=== PATIENT | male | born 1975 | race Hispanic/Latino ===

== ENCOUNTER 2018-02-18 10:04 | Emergency (ER) | payer OTHER ==
--- OUTSIDE RECORDS SUMMARY | 2018-02-18 10:07 | XMS REPORT | Clinical Summary ---
:1975 Author Organization [facility] Address [address] [place] [address] Phone Care Team Providers Name Role Phone Unavailable Primary Care Provider Unavailable Allergies No Known Allergies Current Medications Prescription Sig. Disp. Refills Start Date End Date Status lisinopril Take 20 mg by Active (PRINIVIL,ZESTRIL) 20 mouth daily. MG tablet metFORMIN (GLUMETZA) Take 1,000 mg by Active 1000 MG (MOD) 24 hr mouth 2 (two) tablet times daily with breakfast and dinner. omeprazole (PRILOSEC) Take 40 mg by Active 40 MG capsule mouth daily. empagliflozin Take 10 mg by Active (JARDIANCE) 10 mg mouth daily. tablet tcffed-zsdsokth-ulfvh Take 36,000 Active se (CREON) units of lipase 36,000-114,000- by mouth 3 180,000 unit CpDR (three) times capsule daily. dicyclomine (BENTYL) Take 1 tablet 20 tablet 0 11/01/2016 11/01/2017 20 mg tablet (20 mg total) by mouth 3 (three) times daily. Active Problems Not on file Social History Tobacco Use Types Packs/Day Years Used Date Never Smoker Alcohol Use Drinks/Week oz/Week Comments No sober 4 years Sex Assigned at Date Recorded Not on file Last Filed Vital Signs Not on file Plan of Treatment Not on file Results Not on fileafter 02/17/2017
--- OUTSIDE RECORDS SUMMARY | 2018-02-18 10:07 | XMS REPORT ---
:1975 Author Organization [facility] Address [address] [place] [address] Care Team Providers Name Role Phone Unavailable Unavailable Unavailable Problems This patient has no known problems. Allergies, Adverse Reactions, Alerts This patient has no known allergies or adverse reactions. Medications This patient has no known medications. Results Test Description Test Time Test Comments Text Results Atomic Results Result Comments URINALYSIS W/ MICROSCOPIC 2016-11-01 14:50:00 Test Item Value Reference Range Comments COLOR (BEAKER) (test pzoh=951) Light Yellow CLARITY (BEAKER) (test duiw=753) Clear SPECIFIC GRAVITY UA (BEAKER) (test muii=162) 1.001 1.001-1.035 PH UA (BEAKER) (test pyis=887) 5.0 5.0-8.0 PROTEIN UA (BEAKER) (test pyvy=689) Negative Negative GLUCOSE UA (BEAKER) (test risi=041) 1000 mg/dL Negative KETONES UA (BEAKER) (test girt=156) Negative Negative BILIRUBIN UA (BEAKER) (test hznd=990) Negative Negative BLOOD UA (BEAKER) (test khwg=997) Negative Negative NITRITE UA (BEAKER) (test beby=443) Negative Negative LEUKOCYTE ESTERASE UA (BEAKER) (test nace=947) Negative Negative UROBILINOGEN UA (BEAKER) (test ozia=091) 0.2 mg/dL 0.2-1.0 RBC UA (BEAKER) (test pxus=881) 0 /HPF WBC UA (BEAKER) (test mmlo=359) 0 /HPF SOURCE(BEAKER) (test gwib=1409) Urine, Clean Catch BASIC METABOLIC [id number] 14:23:00 Test Item Value Reference Range Comments SODIUM (BEAKER) (test 137 meq/L 136-145 wtig=933) POTASSIUM (BEAKER) (test 3.9 meq/L 3.5-5.1 fdqa=736) CHLORIDE (BEAKER) (test 107 meq/L 98-107 fims=051) CO2 (BEAKER) (test 23 meq/L 22-29 oxdn=069) BLOOD UREA NITROGEN 10 mg/dL 7-21 (BEAKER) (test dets=186) CREATININE (BEAKER) (test 0.85 mg/dL 0.57-1.25 pjsu=918) GLUCOSE RANDOM (BEAKER) 85 mg/dL 70-105 (test qgav=128) CALCIUM (BEAKER) (test 9.0 mg/dL 8.4-10.2 lyrv=975) EGFR (BEAKER) (test mL/min/1.73 sq m INSUFFICIENT CLINICAL DATA vkwo=9923) TO CALCULATE ESTIMATED GFR. [id number] 14:20:00 Test Item Value Reference Range Comments LIPASE (BEAKER) (test tscj=948) 71 U/L 8-78 [id number] 14:20:00 Test Item Value Reference Range Comments AMYLASE (BEAKER) (test otgu=100) 75 U/L 25-125 HEPATIC FUNCTION [id number] 14:20:00 Test Item Value Reference Range Comments TOTAL PROTEIN (BEAKER) (test fdiu=834) 7.4 gm/dL 6.0-8.3 ALBUMIN (BEAKER) (test apnw=4561) 4.2 g/dL 3.5-5.0 BILIRUBIN TOTAL (BEAKER) (test doku=550) 1.7 mg/dL 0.2-1.2 BILIRUBIN DIRECT (BEAKER) (test uehm=430) 0.5 mg/dL 0.1-0.5 ALKALINE PHOSPHATASE (BEAKER) (test bqpq=093) 54 U/L 40-150 AST (SGOT) (BEAKER) (test lirv=581) 31 U/L 5-34 ALT (SGPT) (BEAKER) (test fqfa=627) 42 U/L 6-55 CBC W/PLT COUNT & AUTO [id number] 14:06:00 Test Item Value Reference Range Comments WHITE BLOOD CELL COUNT (BEAKER) (test xssl=221) 6.7 K/ L 4.0-10.0 RED BLOOD CELL COUNT (BEAKER) (test aanw=671) 5.15 M/ L 4.20-5.80 HEMOGLOBIN (BEAKER) (test yblw=092) 16.1 GM/DL 13.0-16.8 HEMATOCRIT (BEAKER) (test ytue=567) 45.5 % 40.0-50.0 MEAN CORPUSCULAR VOLUME (BEAKER) (test ldqb=211) 88.4 fL 82.0-98.0 MEAN CORPUSCULAR HEMOGLOBIN (BEAKER) (test 31.3 pg 27.0-33.0 aicr=851) MEAN CORPUSCULAR HEMOGLOBIN CONC (BEAKER) (test 35.5 GM/DL 32.0-36.0 lxio=718) RED CELL DISTRIBUTION WIDTH (BEAKER) (test 13.0 % 10.3-14.2 lthk=882) PLATELET COUNT (BEAKER) (test xwoc=836) 197 K/CU MM 150-430 MEAN PLATELET VOLUME (BEAKER) (test crjd=709) 7.5 fL 6.5-10.5 NUCLEATED RED BLOOD CELLS (BEAKER) (test 0 /100 WBC 0-0 kzxw=680) NEUTROPHILS RELATIVE PERCENT (BEAKER) (test 59 % xnom=380) LYMPHOCYTES RELATIVE PERCENT (BEAKER) (test 34 % zncu=706) MONOCYTES RELATIVE PERCENT (BEAKER) (test 5 % cecy=525) EOSINOPHILS RELATIVE PERCENT (BEAKER) (test 1 % fpdu=956) BASOPHILS RELATIVE PERCENT (BEAKER) (test 1 % ohau=116) NEUTROPHILS ABSOLUTE COUNT (BEAKER) (test 3.98 K/ L 1.80-8.00 afga=292) LYMPHOCYTES ABSOLUTE COUNT (BEAKER) (test 2.26 K/ L 1.48-4.50 ezva=439) MONOCYTES ABSOLUTE COUNT (BEAKER) (test 0.33 K/ L 0.00-1.30 enwm=940) EOSINOPHILS ABSOLUTE COUNT (BEAKER) (test 0.09 K/ L 0.00-0.50 zmrn=904) BASOPHILS ABSOLUTE COUNT (BEAKER) (test 0.07 K/ L 0.00-0.20 nejb=735) 0.00
--- NOTE | 2018-02-18 11:38 | RAD REPORT ---
EXAM DESCRIPTION: RAD - Chest Pa And Lat (2 Views) - 02/18/2018 11:33 am CLINICAL HISTORY: COUGH Chest pain. COMPARISON: No comparisons FINDINGS: The lungs are clear. The heart is normal in size. No displaced fractures. IMPRESSION: No acute or concerning finding suspected.
[2018-02-18 12:24] LABS: Absolute Lymphocytes (CBC) 1.9 K/uL (0.7-4.9); Absolute Monocytes 0.4 K/uL (0.1-1.3); Basophils % 0.8 % (0-1.3); Eosinophils % 2.8 % (0-4.4); Hematocrit 43.8 % (39.6-49.0); Lymphocytes % 28.6 % (15.3-44.8); MCH 31.5 pg (27.0-35.0); MCV 86.7 fL (80-100); MPV 8.6 fL (7.6-11.3); Monocytes % 5.8 % (3.3-12.3); RBC Red Blood Cell Count 5.05 M/uL (4.33-5.43)
[2018-02-18] MEDS ORDERED: NA CHLORIDE 0.9% 1,000 ML ONE (12:28)
[2018-02-18 12:46] LABS: ALT/SGPT 107 U/L (12-78); AST/SGOT 69 U/L (15-37); Albumin 3.9 g/dL (3.4-5.0); Alkaline Phosphatase 109 U/L (45-117); BUN Blood Urea Nitrogen 6 mg/dL (7-18); Bicarbonate 29 mmol/L (21-32); Bilirubin Direct 0.3 mg/dL (0-0.2); Bilirubin Total 1.5 mg/dL (0.2-1.0); Glucose Level 237 mg/dL (74-106); Lipase 253 U/L (73-393); Potassium 3.7 mmol/L (3.5-5.1); Sodium Level 139 mmol/L (136-145)
[2018-02-18 12:57] LABS: Urine Bacteria NONE SEEN /HPF (NONE SEEN); Urine Culture Reflex Order NOT NEEDED; Urine RBC <5 /HPF (NONE SEEN)
[2018-02-18] MEDS ORDERED: KETOROLAC 30 MG/ML INJ ONE (14:07)
[2018-02-18 14:21] LABS: Urine Blood NEGATIVE (NEG); Urine Glucose 2+ (NEG); Urine Protein NEGATIVE (NEG); Urine pH 6.5 (5.0-7.0)
--- NOTE | 2018-02-18 14:26 | RAD REPORT ---
EXAM DESCRIPTION: CT - Stone Protocol - 02/18/2018 2:12 pm CLINICAL HISTORY: Abdominal pain, flank pain COMPARISON: CT September 2016 TECHNIQUE: Axial 5 mm thick images were obtained without oral or IV contrast. The gnydz-mr-kixb span s the entirety of the system including uppermost abdomen and lung bases. All CT scans are performed using dose optimization technique as appropriate and may include automated exposure control or mA/KV adjustment according to patient size. FINDINGS: No hydronephrosis is present and no obstructing ureteral calculi. No suspicious renal mass es. Isodense masses and pyelonephritis are not excluded on a stone protocol CT scan. No urinary bladd er suspicious finding. Prostate gland and seminal vesicles are normal range. Imaged portions of the liver, spleen and pancreas show no focal findings on non-contrast imaging. Naty er attenuation shows fatty infiltration relative to the spleen. Gallbladder is absent. Biliary tree w ithin normal limits. No significant adrenal finding. No suspicious bowel findings. Appendix is normal. No active GI process identifiable. Phleboliths are seen along the pelvic floor. No hernia, mass or bulky lymphadenopathy noted. No free air, free fluid or inflammatory stranding. No significant bony abnormality. IMPRESSION: No hydronephrosis, obstructing calculus or acute finding. Isodense masses and pyelonephritis are not excluded on stone protocol technique. Fatty infiltration of the liver. Gallbladder is surgically absent.
--- NOTE | 2018-02-18 14:52 | EDPHYS ---
Physician Documentation [facility] Name: Maykel Levin Jr Age: 42 yrs Sex: Male : 1975 Arrival Date: 02/18/2018 Time: 10:08 Bed 24 Private MD: Shakir Ribeiro ED Physician Alli Iniguez HPI: 02/18 13:00 This 42 yrs old Male presents to ER via Ambulatory with complaints of High pm1 Blood Sugar. 13:00 The patient or guardian reports hyperglycemia, that was potentially precipitated by pm1 running out of medication, metformin this AM. Onset: The symptoms/episode began/occurred this morning. Associated signs and symptoms: Pertinent negatives: polydipsia, polyphagia, polyuria. Current symptoms: In the emergency department the patient's symptoms have improved. The patient has not experienced similar symptoms in the past. The patient has not recently seen a physician. Patient with blood sugars in the range of 400 at work. Blood sugars have improved prior to arriving to the ER. Patient missed his dosage of metformin 1000 mg this AM because he ran out.. Historical: - Allergies: 10:42 No Known Allergies; ph - Home Meds: 10:42 Metformin Oral [Active]; losartan oral oral [Active]; ph - PMHx: 10:37 Hypertension; ph 10:42 Diabetes - NIDDM; Pancreatitis; ph - PSHx: 10:37 Cholecystectomy; ph - Immunization history:: Adult Immunizations up to date. - Social history:: Smoking status: Patient/guardian denies using tobacco. - Ebola Screening: : Patient denies travel to an Ebola-affected area in the 21 days before illness onset. ROS: 13:00 Constitutional: Negative for fever, chills, and weight loss, Eyes: Negative for injury, pm1 pain, redness, and discharge, ENT: Negative for injury, pain, and discharge, Neck: Negative for injury, pain, and swelling, Cardiovascular: Negative for chest pain, palpitations, and edema, Respiratory: Negative for shortness of breath, cough, wheezing, and pleuritic chest pain, Abdomen/GI: Negative for abdominal pain, nausea, vomiting, diarrhea, and constipation, Back: Negative for injury and pain, : Negative for injury, bleeding, discharge, and swelling, MS/Extremity: Negative for injury and deformity, Skin: Negative for injury, rash, and discoloration, Neuro: Negative for headache, weakness, numbness, tingling, and seizure. Exam: 13:00 Constitutional: This is a well developed, well nourished patient who is awake, alert, pm1 and in no acute distress. Head/Face: Normocephalic, atraumatic. Eyes: Pupils equal round and reactive to light, extra-ocular motions intact. Lids and lashes normal. Conjunctiva and sclera are non-icteric and not injected. Cornea within normal limits. Periorbital areas with no swelling, redness, or edema. ENT: Nares patent. No nasal discharge, no septal abnormalities noted. Tympanic membranes are normal and external auditory canals are clear. Oropharynx with no redness, swelling, or masses, exudates, or evidence of obstruction, uvula midline. Mucous membranes moist. Neck: Trachea midline, no thyromegaly or masses palpated, and no cervical lymphadenopathy. Supple, full range of motion without nuchal rigidity, or vertebral point tenderness. No Meningismus. Chest/axilla: Normal chest wall appearance and motion. Nontender with no deformity. No lesions are appreciated. Cardiovascular: Regular rate and rhythm with a normal S1 and S2. No gallops, murmurs, or rubs. Normal PMI, no JVD. No pulse deficits. Respiratory: Lungs have equal breath sounds bilaterally, clear to auscultation and percussion. No rales, rhonchi or wheezes noted. No increased work of breathing, no retractions or nasal flaring. Abdomen/GI: Soft, non-tender, with normal bowel sounds. No distension or tympany. No guarding or rebound. No evidence of tenderness throughout. Back: No spinal tenderness. No costovertebral tenderness. Full range of motion. Skin: Warm, dry with normal turgor. Normal color with no rashes, no lesions, and no evidence of cellulitis. MS/ Extremity: Pulses equal, no cyanosis. Neurovascular intact. Full, normal range of motion. 13:00 Neuro: Orientation: is normal, Motor: moves all fours. Vital Signs: 10:41 BP 145 / 100; Pulse 66; Resp 18; Temp 97.9; Pulse Ox 98% on R/A; Weight 92.99 kg; ph Height 5 ft. 7 in. (170.18 cm); 13:37 BP 133 / 89; Pulse 59; Resp 18; Pulse Ox 97% on R/A; aj1 15:30 BP 127 / 82; Pulse 62; Resp 18; Pulse Ox 99% on R/A; aj1 10:41 Body Mass Index 32.11 (92.99 kg, 170.18 cm) ph MDM: 11:08 Patient medically screened. pm1 11:13 Patient medically screened. vera 12:51 Data reviewed: vital signs. Data interpreted: Pulse oximetry: on room air is 98 %. pm1 Interpretation: normal. 13:57 ED course: Patient reports onset of right flank pain during ER stay, requesting pain pm1 medications. Will order pain medications and CT stone protocol to evaluate flank pain. 14:50 Counseling: I had a detailed discussion with the patient and/or guardian regarding: the pm1 historical points, exam findings, and any diagnostic results supporting the discharge/admit diagnosis, lab results, radiology results, the need for outpatient follow up, to return to the emergency department if symptoms worsen or persist or if there are any questions or concerns that arise at home. 02/18 11:16 Order name: Basic Metabolic Panel; Complete Time: 12:48 pm1 02/18 11:16 Order name: CBC with Diff; Complete Time: 12:45 pm1 02/18 11:16 Order name: Hepatic Function; Complete Time: 12:48 pm1 02/18 11:16 Order name: Lipase; Complete Time: 12:48 pm1 02/18 11:16 Order name: Urine Microscopic Only; Complete Time: 13:52 pm1 02/18 12:05 Order name: Urine Dipstick--Ancillary (enter results); Complete Time: 14:50 eb 02/18 11:16 Order name: IV Saline Lock; Complete Time: 11:56 pm02/18 11:16 Order name: Labs collected and sent; Complete Time: 11:56 pm1 02/18 11:16 Order name: Urine Dipstick-Ancillary (obtain specimen); Complete Time: 11:57 pm02/18 11:16 Order name: Chest Pa And Lat (2 Views) XRAY; Complete Time: 11:40 pm1 02/18 13:57 Order name: CT Stone Protocol; Complete Time: 14:50 pm1 Administered Medications: 12:32 Drug: NS 0.9% 1000 ml Route: IV; Rate: 1000 ml; Site: left antecubital; aj1 14:22 Drug: TORadol 30 mg Route: IVP; Site: left antecubital; aj1 Disposition: 02/19 07:20 Co-signature as Attending Physician, Alli Iniguez MD I agree with the assessment and vera plan of care. Chart complete. Disposition: 02/18/18 14:51 Discharged to Home. Impression: Hyperglycemia, unspecified, Low back pain. - Condition is Stable. - Discharge Instructions: Back Pain, Adult, Hyperglycemia, Blood Glucose Monitoring, Adult. - Prescriptions for Metformin 1,000 mg Oral Tablet - take 1 tablet by ORAL route every 12 hours with morning and evening meals; 20 tablet. - Medication Reconciliation Form, Thank You Letter form. - Follow up: Private Physician; When: 2 - 3 days; Reason: Recheck today's complaints, Continuance of care, Re-evaluation by your physician. Follow up: Emergency Department; When: As needed; Reason: Worsening of condition. - Problem is new. - Symptoms have improved. Signatures: Dispatcher [employer] EDSerena Knott RN RN aj1 Alli Iniguez MD MD cha Hall, Patricia, RN RN ph Marinas, Patrick, FISH CLEANER FISH CLEANER pm1 Corrections: (The following items were deleted from the chart) 02/18 15:31 14:51 02/18/2018 14:51 Discharged to Home. Impression: Hyperglycemia, unspecified; Low aj1 back pain. Condition is Stable. Discharge Instructions: Hyperglycemia, Blood Glucose Monitoring, Adult. Prescriptions for Metformin 500 mg Oral Tablet - take 1 tablet by ORAL route once daily for 7 days Then take 1 tablet with morning meals AND evening meals; 21 tablet. and Forms are Medication Reconciliation Form, Thank You Letter, Antibiotic Education, Prescription Opioid Use. Follow up: Private Physician; When: 2 - 3 days; Reason: Recheck today's complaints, Continuance of care, Re-evaluation by your physician. Follow up: Emergency Department; When: As needed; Reason: Worsening of condition. Problem is new. Symptoms have improved. pm1
--- NOTE | 2018-02-18 14:52 | ER ---
Nurse's Notes [facility] Name: Maykel Levin Jr Age: 42 yrs Sex: Male : 1975 Arrival Date: 02/18/2018 Time: 10:08 Bed 24 Private MD: Shakir Ribeiro Diagnosis: Hyperglycemia, unspecified;Low back pain Presentation: 02/18 10:39 Presenting complaint: Patient states: " My sugar has been running high today. When I ph checked it at work it was in the 400s then right before I cam up here it was 310." Pt denies recent infection, N/V/D or illness, BGL 243 in triage, pt reports increased urination and thirst, headache, fatigue and confusion states, " IT's like I'm in a fog.". Transition of care: patient was not received from another setting of care. Onset of symptoms was February 18, 2018. Risk Assessment: Do you want to hurt yourself or someone else? Patient reports no desire to harm self or others. Initial Sepsis Screen: Does the patient meet any 2 criteria? No. Patient's initial sepsis screen is negative. Does the patient have a suspected source of infection? No. Patient's initial sepsis screen is negative. Care prior to arrival: None. 10:39 Method Of Arrival: Ambulatory ph 10:39 Acuity: ANT 3 ph Historical: - Allergies: 10:42 No Known Allergies; ph - Home Meds: 10:42 Metformin Oral [Active]; losartan oral oral [Active]; ph - PMHx: 10:37 Hypertension; ph 10:42 Diabetes - NIDDM; Pancreatitis; ph - PSHx: 10:37 Cholecystectomy; ph - Immunization history:: Adult Immunizations up to date. - Social history:: Smoking status: Patient/guardian denies using tobacco. - Ebola Screening: : Patient denies travel to an Ebola-affected area in the 21 days before illness onset. Screenin:10 Abuse screen: Denies threats or abuse. Denies injuries from another. Nutritional aj1 screening: No deficits noted. Tuberculosis screening: No symptoms or risk factors identified. 15:30 Fall Risk None identified. aj1 Assessment: 11:10 General: Appears in no apparent distress. uncomfortable, Behavior is calm, cooperative, aj1 appropriate for age. Pain: Complains of pain in right mid back Pain does not radiate. Pain currently is 3 out of 10 on a pain scale. Quality of pain is described as aching. Neuro: Level of Consciousness is awake, alert, obeys commands, Oriented to person, place, time, situation, Moves all extremities. Full function Gait is steady, Speech is normal, Facial symmetry appears normal, Reports dizziness. Cardiovascular: Patient's skin is warm and dry. Respiratory: Airway is patent Respiratory effort is even, unlabored, Respiratory pattern is regular, symmetrical. GI: No signs and/or symptoms were reported involving the gastrointestinal system. : No signs and/or symptoms were reported regarding the genitourinary system. EENT: No signs and/or symptoms were reported regarding the EENT system. Derm: No signs and/or symptoms reported regarding the dermatologic system. Skin is pink, warm \\T\\ dry. normal. Musculoskeletal: No signs and/or symptoms reported regarding the musculoskeletal system. Circulation, motion, and sensation intact. 12:39 Reassessment: Patient appears in no apparent distress at this time. No changes from aj1 previously documented assessment. Patient and/or family updated on plan of care and expected duration. Pain level reassessed. Patient is alert, oriented x 3, equal unlabored respirations, skin warm/dry/pink. 13:37 Reassessment: Patient appears in no apparent distress at this time. No changes from aj1 previously documented assessment. Patient and/or family updated on plan of care and expected duration. Pain level reassessed. Patient is alert, oriented x 3, equal unlabored respirations, skin warm/dry/pink. 14:30 Reassessment: Patient appears in no apparent distress at this time. No changes from aj1 previously documented assessment. Patient and/or family updated on plan of care and expected duration. Pain level reassessed. Patient is alert, oriented x 3, equal unlabored respirations, skin warm/dry/pink. 15:29 Reassessment: Patient appears in no apparent distress at this time. No changes from aj1 previously documented assessment. Patient and/or family updated on plan of care and expected duration. Pain level reassessed. Patient is alert, oriented x 3, equal unlabored respirations, skin warm/dry/pink. Vital Signs: 10:41 BP 145 / 100; Pulse 66; Resp 18; Temp 97.9; Pulse Ox 98% on R/A; Weight 92.99 kg; ph Height 5 ft. 7 in. (170.18 cm); 13:37 BP 133 / 89; Pulse 59; Resp 18; Pulse Ox 97% on R/A; aj1 15:30 BP 127 / 82; Pulse 62; Resp 18; Pulse Ox 99% on R/A; aj1 10:41 Body Mass Index 32.11 (92.99 kg, 170.18 cm) ph ED Course: 10:08 Patient arrived in ED. sb2 10:08 Shakir Ribeiro MD is Private Physician. sb2 10:41 Triage completed. ph 10:42 Arm band placed on Patient placed in waiting room, Patient notified of wait time. ph 11:07 Marcio Weber, KAREN is PHCP. pm1 11:08 Alli Iniguez MD is Attending Physician. pm1 11:10 Serena Wills RN is Primary Nurse. aj1 11:10 Patient has correct armband on for positive identification. Bed in low position. Call aj1 light in reach. Side rails up X 1. 11:10 No provider procedures requiring assistance completed. aj1 11:31 X-ray completed. Portable x-ray completed in exam room. Patient tolerated procedure jb2 well. 11:32 Chest Pa And Lat (2 Views) XRAY In Process Unspecified. EDMS 11:45 Initial lab(s) drawn, by me, sent to lab. Urine collected: clean catch specimen, clear, jp3 manuel colored. Inserted saline lock: 20 gauge in right antecubital area, using aseptic technique. Blood collected. 11:54 Pillow given. Pulse ox on. NIBP on. jp3 11:56 Basic Metabolic Panel Sent. jp3 11:56 CBC with Diff Sent. jp3 11:56 Lipase Sent. jp3 11:56 Hepatic Function Sent. jp3 11:57 Urine Microscopic Only Sent. jp3 14:11 CT completed. Patient tolerated procedure well. Patient moved to CT via wheelchair. sj Patient moved back from CT. 14:12 CT Stone Protocol In Process Unspecified. EDMS 15:29 IV discontinued, intact, bleeding controlled, No redness/swelling at site. Pressure aj1 dressing applied. Administered Medications: 12:32 Drug: NS 0.9% 1000 ml Route: IV; Rate: 1000 ml; Site: left antecubital; aj1 14:22 Drug: TORadol 30 mg Route: IVP; Site: left antecubital; aj1 Outcome: 14:51 Discharge ordered by MD. pm1 15:30 Discharged to home ambulatory. aj1 15:30 Condition: good 15:30 Discharge instructions given to patient, Instructed on discharge instructions, follow up and referral plans. medication usage, Demonstrated understanding of instructions, follow-up care, medications, Prescriptions given X 1. 15:31 Patient left the ED. aj1 Signatures: Dispatcher [employer] Serena Prather RN RN aj1 Patricio Melgar jbGilma Means Patricia, RN RN Marcio Ch, SPECIAL EDUCATION TUTOR SPECIAL EDUCATION TUTOR pm1 Esthela Harris sb2 Thompson Angel jp3
== END 2018-02-18 15:31 | disposition home or self-care (01) ==
LOC: ER 10:04
DX: E11.65 Type 2 diabetes mellitus with hyperglycemia (principal); M54.5 Low back pain; I10 Essential (primary) hypertension
CPT/HCPCS: 36415; 71046; 74176; 76377; 80048; 80076; 81003; 81015; 82962; 83690; 85025; 96374; 99284; J7030

== ENCOUNTER 2018-03-21 10:01 | Emergency (ER) | payer OTHER ==
--- OUTSIDE RECORDS SUMMARY | 2018-03-21 10:04 | XMS REPORT | Clinical Summary ---
:1975 Author Organization [facility] Address [address] [place] [address] Phone Care Team Providers Name Role Phone Unavailable Primary Care Provider Unavailable Allergies No Known Allergies Current Medications Prescription Sig. Disp. Refills Start Date End Date Status metFORMIN Take 1,000 mg Active (GLUMETZA) 1000 MG by mouth 2 (MOD) 24 hr tablet (two) times daily with breakfast and dinner. losartan (COZAAR) Take 25 mg by Active 25 MG tablet mouth daily. gabapentin Take 300 mg by Active (NEURONTIN) 300 MG mouth 2 (two) capsule times daily. rosuvastatin Take 5 mg by Active (CRESTOR) 5 MG mouth daily. tablet venlafaxine Take 37.5 mg by Active (EFFEXOR) 37.5 MG mouth nightly. tablet multivitamin per Take 1 tablet Active tablet by mouth daily. ascorbic acid, Take 500 mg by Active vitamin C, mouth daily. (ASCORBIC ACID WITH JORGE HIPS) 500 MG tablet naproxen sodium Take by mouth Active (ALEVE ORAL) as needed. lisinopril Take 20 mg by Discontinued (PRINIVIL,ZESTRIL) mouth daily. 8 20 MG tablet omeprazole Take 40 mg by Discontinued (PRILOSEC) 40 MG mouth daily. 8 capsule empagliflozin Take 10 mg by Discontinued (JARDIANCE) 10 mg mouth daily. 8 tablet ngiexl-dugwbujc-dbl Take 36,000 Discontinued lase (CREON) units of lipase 8 36,000-114,000- by mouth 3 180,000 unit CpDR (three) times capsule daily. dicyclomine Take 1 tablet 20 tablet 0 11/01/2016 (BENTYL) 20 mg (20 mg total) 8 tablet by mouth 3 (three) times daily. Active Problems Problem Noted Date Fatty liver 03/17/2018 Last Assessment & Plan: Patient has several risk factors for NAFLD including obesity, Type 2 DM, HTN, HLD diagnostic of metabolic syndrome. He will need aggressive life style modification and treatment of risk factors. We counseled patient to follow low carbohydrate diet, exercise regularly, and lose weight. Education material provided to patient today. NAFLD is a risk factor to develop cirrhosis which carries high risk for complications and mortality. Cirrhosis 03/17/2018 Last Assessment & Plan: Cirrhosis diagnosed based on US elastography showing F4 fibrosis. There are no signs or symptoms currently for decompensation. Labs from 10/2016 show well preserved liver synthetic function. Etiology is most likely NAFLD. He has multiple risk factors as discussed below. We will do liver biopsy, MRI abdomen and check comprehensive liver tests to rule out any other cause of cirrhosis. Cirrhosis has high risk for complications and carries high risk for mortality. We will calculate MELD Na based on labs today. Cirrhosis guidelines reviewed with patient. Immunity status testing 03/17/2018 Last Assessment & Plan: All patients with chronic liver disease, regardless of etiology, should be immunized to prevent hepatitis A and hepatitis B if they are not already immune. We will test for immunity to both viruses and vaccine recommendations will follow. Cancer screening 03/17/2018 Last Assessment & Plan: Cirrhosis, regardless of etiology, is a risk factor for development of hepatocellular carcinoma (HCC). The annual incidence of HCC varies from 1.5-7%. Thus, we recommend surveillance of HCC every 6 anahi hs with MRI and AFP. We will do MRI and AFP today. Indirect hyperbilirubinemia 03/17/2018 Encounters Date Type Specialty Care Team Description 03/21/2018 Telephone Transplant [facility] 03/17/2018 Office Visit Hepatology Sylvester Low MD Other cirrhosis of liver (HCC) (Primary Dx);Immunity status testing;Screening for malignant neoplasm;Fatty liver;Cirrhosis;Cancer screening;Liver disease;Portal hypertension (HCC);Indirect hyperbilirubinemia after 03/20/2017 Family History Medical History Relation Name Comments Prostatitis Father Diabetes Mother Heart disease Mother Relation Name Status Comments Father Alive Mother Alive Social History Tobacco Use Types Packs/Day Years Used Date Never Smoker Smokeless Tobacco: Never Used Alcohol Use Drinks/Week oz/Week Comments No sober 4 years Sex Assigned at Date Recorded Not on file Last Filed Vital Signs Vital Sign Reading Time Taken Blood Pressure 157/83 03/17/2018 10:39 AM CDT Pulse 92 03/17/2018 10:39 AM CDT Temperature 36.8 C (98.3 F) 03/17/2018 10:39 AM CDT Respiratory Rate 18 03/17/2018 10:39 AM CDT Oxygen Saturation 98% 03/17/2018 10:39 AM CDT Inhaled Oxygen Concentration - - Weight 93.2 kg (205 lb 6.4 oz) 03/17/2018 10:39 AM CDT Height 170.2 cm (5' 7") 03/17/2018 10:39 AM CDT Body Mass Index 32.17 03/17/2018 10:39 AM CDT Plan of Treatment Date Type Specialty Care Team Description 03/26/2018 Appointment Radiology Syvlester Low MD [address] [place] [address] [phone] 03/28/2018 Appointment Radiology Sylvester Low MD [address] [place] [address] [phone] 04/22/2018 Office Visit Hepatology Sylvester Low MD [address] [place] [address] [phone] Results Iron, TIBC, % sat. (without ferritin) (03/17/2018 1:42 PM) Component Value Ref Range Iron 124 50 - 180 mcg/dL Iron Bind.Cap.(TIBC) 379 250 - 425 mcg/dL (calc) Iron % Saturation 33 15 - 60 % (calc) Specimen Performing Laboratory [facility] [address] [place] [phone] Narrative FASTING:YES FASTING: YES Hepatitis C antibody (03/17/2018 1:42 PM) Component Value Ref Range HEPATITIS C ANTIBODY NON-REACTIVE NON-REACTIVE Signal/Cutoff 0.04 <1.00 Specimen Performing Laboratory [facility] [address] [place] [address] Narrative FASTING:YES FASTING: YES Actin (Smooth Muscle) Antibody, IgG (03/17/2018 1:42 PM) Component Value Ref Range Anti-Smooth Muscle Ab <20 U Comment: Reference Range: < 20 NEGATIVE > OR=20 POSITIVE Antibodies recognizing actin are the main component of smooth muscle antibodies associated with autoimmune liver disease. Actin antibodies are found in approximately 75% of patients with autoimmune hepatitis (AIH) type 1, approximately 65% of patients with autoimmune cholangitis, approximately 30% of patients with primary biliary cirrhosis, and approximately 2% of healthy people. High values are closely correlated with AIH type 1. Specimen Performing Laboratory [facility] [address] [place] [address], [place] [address] Narrative FASTING:YES FASTING: YES Intrs-[id number] (03/17/2018 1:42 PM) Component Value Ref Range A-1 Antitrypsin 139 83 - 199 mg/dL Specimen Performing Laboratory [facility] [address] [place] [address], [place] [address] Narrative FASTING:YES FASTING: YES Carbohydrate antigen 19-9 (CA 19-9) (03/17/2018 1:42 PM) Component Value Ref Range Carbo. Antigen 19-9 9 <34 U/mL Comment: This test was performed using the Moodyo chemiluminescent method. Values obtained from different assay methods cannot be used interchangeably. CA 19-9 levels, regardless of value, should not be interpreted as absolute evidence of the presence or absence of disease. Specimen Performing Laboratory [facility] [address] [place] [address], [place] [address] Narrative FASTING:YES FASTING: YES Ceruloplasmin (03/17/2018 1:42 PM) Component Value Ref Range Ceruloplasmin 26 18 - 36 mg/dL Specimen Performing Laboratory [facility] [address] [place] [address], [place] [address] Narrative FASTING:YES FASTING: YES Alpha fetoprotein (AFP), tumor marker (03/17/2018 1:42 PM) Component Value Ref Range Alpha-Fetoprotein 5.3 <6.1 ng/mL Comment: This test was performed using the Applika chemiluminescent method. Values obtained from different assay methods cannot be used interchangeably. AFP levels, regardless of value, should not be interpreted as absolute evidence of the presence or absence of disease. Specimen Performing Laboratory [facility] [address] [place] [address], [place] [address] Narrative FASTING:YES FASTING: YES Hepatitis B core antibody, total (03/17/2018 1:42 PM) Component Value Ref Range Hep B Core Total Ab NON-REACTIVE NON-REACTIVE Specimen Performing Laboratory [facility] [address] [place] [address], [place] [address] Narrative FASTING:YES FASTING: YES Hepatitis B surface antibody (03/17/2018 1:42 PM) Component Value Ref Range Hep B S Ab <5 (L) > OR=10 mIU/mL Comment: Patient does not have immunity to hepatitis B virus. For additional information, please refer to http://education.LogicBay/faq/IXT010 (This link is being provided for informational/ educational purposes only). Specimen Performing Laboratory [facility] [address] [facility] [place] [address] Narrative FASTING:YES FASTING: YES Hepatitis B surface antigen (03/17/2018 1:42 PM) Component Value Ref Range Hepatitis B Surface Ag NON-REACTIVE NON-REACTIVE Specimen Performing Laboratory [facility] [address] [place] [address], [place] [address] Narrative FASTING:YES FASTING: YES Prothrombin time/INR (03/17/2018 1:42 PM) Component Value Ref Range INR 1.1 Comment: Reference Range 0.9-1.1 Moderate-intensity Warfarin Therapy 2.0-3.0 Higher-intensity Warfarin Therapy 3.0-4.0 PT 11.2 9.0 - 11.5 sec Comment: For more information on this test, go to: http://education.LogicBay/faq/CHV226 Specimen Performing Laboratory [facility] [address] [place] [address], [place] [address] Narrative FASTING:YES FASTING: YES CBC with platelet count + automated diff (03/17/2018 1:42 PM) Component Value Ref Range WBC 7.2 3.8 - 10.8 Thousand/uL RBC 5.23 4.20 - 5.80 Million/uL Hemoglobin 16.3 13.2 - 17.1 g/dL Hematocrit 46.4 38.5 - 50.0 % MCV 88.7 80.0 - 100.0 fL MCH 31.2 27.0 - 33.0 pg MCHC 35.1 32.0 - 36.0 g/dL RDW 12.8 11.0 - 15.0 % Platelets 241 140 - 400 Thousand/uL MPV 10.8 7.5 - 12.5 fL # Neutros 4162 1500 - 7800 cells/uL # Lymphs 2513 850 - 3900 cells/uL # Monos 360 200 - 950 cells/uL # Eos 122 15 - 500 cells/uL # Baso 43 0 - 200 cells/uL % Neutros 57.8 % % Lymphs 34.9 % % Monos 5.0 % % Eos 1.7 % % Baso 0.6 % Specimen Performing Laboratory [facility] [address] [place] [phone] Narrative FASTING:YES FASTING: YES Anti-Nuclear Antibody (BOBY) (03/17/2018 1:42 PM) Component Value Ref Range BOBY Screen NEGATIVE NEGATIVE Comment: BOBY IFA is a first line screen for detecting the presence of up to approximately 150 autoantibodies in various autoimmune diseases. A negative BOBY IFA result suggests BOBY-associated autoimmune diseases are not present at this time. Visit Physician FAQs for interpretation of all antibodies in the Leslie, prevalence, and association with diseases at http://BigML.NOWBOX/ faq/FGY968 Specimen Performing Laboratory [facility] [address] [place] [phone] Narrative FASTING:YES FASTING: YES Ferritin (03/17/2018 1:42 PM) Component Value Ref Range Ferritin, Serum 339 20 - 380 ng/mL Specimen Performing Laboratory [facility] [address] [place] [phone] Narrative FASTING:YES FASTING: YES Carcinoembryonic Antigen (CEA) (03/17/2018 1:42 PM) Component Value Ref Range CEA 1.1 See Note: ng/mL Comment: Reference Range: Non-Smoker: <2.5 Smoker: <5.0 This test was performed using the Siemens chemiluminescent method. Values obtained from different assay methods cannot be used interchangeably. CEA levels, regardless of value, should not be interpreted as absolute evidence of the presence or absence of disease. Specimen Performing Laboratory [facility] [address] [place] [phone] Narrative FASTING:YES FASTING: YES Comprehensive metabolic panel (03/17/2018 1:42 PM) Component Value Ref Range Glucose 107 (H) 65 - 99 mg/dL Comment: Fasting reference interval For someone without known diabetes, a glucose value between 100 and 125 mg/dL is consistent with prediabetes and should be confirmed with a follow-up test. BUN 10 7 - 25 mg/dL Creatinine 0.73 0.60 - 1.35 mg/dL eGFR If NonAfricn Am 114 > OR=60 mL/min/1.73m2 eGFR If Africn Am 132 > OR=60 mL/min/1.73m2 BUN/Creatinine Ratio NOT APPLICABLE 6 - 22 (calc) Sodium 142 135 - 146 mmol/L Potassium, Serum 3.9 3.5 - 5.3 mmol/L Chloride 104 98 - 110 mmol/L Carbon Dioxide, Total 29 20 - 32 mmol/L Calcium, Serum 9.3 8.6 - 10.3 mg/dL Protein, Total, Serum 7.7 6.1 - 8.1 g/dL Albumin 4.9 3.6 - 5.1 g/dL GLOBULIN ([facility]) 2.8 1.9 - 3.7 g/dL (calc) Albumin Globulin Ratio 1.8 1.0 - 2.5 (calc) Bilirubin, Total 2.0 (H) 0.2 - 1.2 mg/dL Alkaline Phosphatase, S 70 40 - 115 U/L AST (SGOT) 43 (H) 10 - 40 U/L ALT (SGPT) 67 (H) 9 - 46 U/L Specimen Performing Laboratory [facility] [address] [facility] [place] [address] Narrative FASTING:YES FASTING: YES after 03/20/2017
--- OUTSIDE RECORDS SUMMARY | 2018-03-21 10:04 | XMS REPORT ---
:1975 Author Organization [facility] Address [address] [place] [address] Care Team Providers Name Role Phone Unavailable Unavailable Unavailable Problems This patient has no known problems. Allergies, Adverse Reactions, Alerts This patient has no known allergies or adverse reactions. Medications This patient has no known medications. Results Test Description Test Time Test Comments Text Results Atomic Results Result Comments URINALYSIS W/ MICROSCOPIC 2016-11-01 14:50:00 Test Item Value Reference Range Comments COLOR (BEAKER) (test ggve=946) Light Yellow CLARITY (BEAKER) (test ilyr=223) Clear SPECIFIC GRAVITY UA (BEAKER) (test lcgo=847) 1.001 1.001-1.035 PH UA (BEAKER) (test uutn=765) 5.0 5.0-8.0 PROTEIN UA (BEAKER) (test pfuk=134) Negative Negative GLUCOSE UA (BEAKER) (test ixuh=865) 1000 mg/dL Negative KETONES UA (BEAKER) (test zucd=982) Negative Negative BILIRUBIN UA (BEAKER) (test mytp=844) Negative Negative BLOOD UA (BEAKER) (test onbs=837) Negative Negative NITRITE UA (BEAKER) (test eaqw=703) Negative Negative LEUKOCYTE ESTERASE UA (BEAKER) (test hjpy=367) Negative Negative UROBILINOGEN UA (BEAKER) (test vreu=606) 0.2 mg/dL 0.2-1.0 RBC UA (BEAKER) (test mego=515) 0 /HPF WBC UA (BEAKER) (test gjsc=132) 0 /HPF SOURCE(BEAKER) (test gdfk=0007) Urine, Clean Catch BASIC METABOLIC [id number] 14:23:00 Test Item Value Reference Range Comments SODIUM (BEAKER) (test 137 meq/L 136-145 fetm=360) POTASSIUM (BEAKER) (test 3.9 meq/L 3.5-5.1 pkgw=231) CHLORIDE (BEAKER) (test 107 meq/L 98-107 ttfb=724) CO2 (BEAKER) (test 23 meq/L 22-29 qihy=116) BLOOD UREA NITROGEN 10 mg/dL 7-21 (BEAKER) (test hxob=976) CREATININE (BEAKER) (test 0.85 mg/dL 0.57-1.25 gxey=015) GLUCOSE RANDOM (BEAKER) 85 mg/dL 70-105 (test mogg=660) CALCIUM (BEAKER) (test 9.0 mg/dL 8.4-10.2 oayb=531) EGFR (BEAKER) (test mL/min/1.73 sq m INSUFFICIENT CLINICAL DATA dlxh=2470) TO CALCULATE ESTIMATED GFR. [id number] 14:20:00 Test Item Value Reference Range Comments LIPASE (BEAKER) (test eaza=284) 71 U/L 8-78 [id number] 14:20:00 Test Item Value Reference Range Comments AMYLASE (BEAKER) (test hdat=991) 75 U/L 25-125 HEPATIC FUNCTION [id number] 14:20:00 Test Item Value Reference Range Comments TOTAL PROTEIN (BEAKER) (test pwkm=653) 7.4 gm/dL 6.0-8.3 ALBUMIN (BEAKER) (test ncwt=9969) 4.2 g/dL 3.5-5.0 BILIRUBIN TOTAL (BEAKER) (test fppp=909) 1.7 mg/dL 0.2-1.2 BILIRUBIN DIRECT (BEAKER) (test ttxh=228) 0.5 mg/dL 0.1-0.5 ALKALINE PHOSPHATASE (BEAKER) (test zukd=209) 54 U/L 40-150 AST (SGOT) (BEAKER) (test xvcm=963) 31 U/L 5-34 ALT (SGPT) (BEAKER) (test vhxf=381) 42 U/L 6-55 CBC W/PLT COUNT & AUTO [id number] 14:06:00 Test Item Value Reference Range Comments WHITE BLOOD CELL COUNT (BEAKER) (test zpax=601) 6.7 K/ L 4.0-10.0 RED BLOOD CELL COUNT (BEAKER) (test ezyt=513) 5.15 M/ L 4.20-5.80 HEMOGLOBIN (BEAKER) (test lqlh=227) 16.1 GM/DL 13.0-16.8 HEMATOCRIT (BEAKER) (test qkzy=517) 45.5 % 40.0-50.0 MEAN CORPUSCULAR VOLUME (BEAKER) (test dxyk=419) 88.4 fL 82.0-98.0 MEAN CORPUSCULAR HEMOGLOBIN (BEAKER) (test 31.3 pg 27.0-33.0 ijem=741) MEAN CORPUSCULAR HEMOGLOBIN CONC (BEAKER) (test 35.5 GM/DL 32.0-36.0 pfyo=402) RED CELL DISTRIBUTION WIDTH (BEAKER) (test 13.0 % 10.3-14.2 mkxp=502) PLATELET COUNT (BEAKER) (test rdsv=170) 197 K/CU MM 150-430 MEAN PLATELET VOLUME (BEAKER) (test ldwg=344) 7.5 fL 6.5-10.5 NUCLEATED RED BLOOD CELLS (BEAKER) (test 0 /100 WBC 0-0 zims=247) NEUTROPHILS RELATIVE PERCENT (BEAKER) (test 59 % smbk=320) LYMPHOCYTES RELATIVE PERCENT (BEAKER) (test 34 % znxc=033) MONOCYTES RELATIVE PERCENT (BEAKER) (test 5 % oezt=139) EOSINOPHILS RELATIVE PERCENT (BEAKER) (test 1 % tjcs=535) BASOPHILS RELATIVE PERCENT (BEAKER) (test 1 % tnib=951) NEUTROPHILS ABSOLUTE COUNT (BEAKER) (test 3.98 K/ L 1.80-8.00 sazq=552) LYMPHOCYTES ABSOLUTE COUNT (BEAKER) (test 2.26 K/ L 1.48-4.50 fxsi=667) MONOCYTES ABSOLUTE COUNT (BEAKER) (test 0.33 K/ L 0.00-1.30 vnni=534) EOSINOPHILS ABSOLUTE COUNT (BEAKER) (test 0.09 K/ L 0.00-0.50 oyms=990) BASOPHILS ABSOLUTE COUNT (BEAKER) (test 0.07 K/ L 0.00-0.20 rmsi=177) 0.00
[2018-03-21] MEDS ORDERED: ONDANSETRON 4 MG/2 ML VIAL ONE (10:48)
[2018-03-21 11:08] LABS: Absolute Lymphocytes (CBC) 2.3 K/uL (0.7-4.9); Absolute Monocytes 0.4 K/uL (0.1-1.3); Absolute Neutrophil 3.4 K/uL (1.8-8.0); Eosinophils % 2.5 % (0-4.4); Hematocrit 42.4 % (39.6-49.0); Lymphocytes % 36.8 % (15.3-44.8); MCH 31.5 pg (27.0-35.0); MPV 8.4 fL (7.6-11.3); Monocytes % 5.8 % (3.3-12.3); RBC Red Blood Cell Count 4.87 M/uL (4.33-5.43)
[2018-03-21 11:30] LABS: ALT/SGPT 84 U/L (12-78); AST/SGOT 53 U/L (15-37); Alkaline Phosphatase 86 U/L (45-117); BUN Blood Urea Nitrogen 7 mg/dL (7-18); Bicarbonate 28 mmol/L (21-32); Bilirubin Direct 0.4 mg/dL (0-0.2); Bilirubin Total 1.3 mg/dL (0.2-1.0); Glucose Level 103 mg/dL (74-106); Lipase 296 U/L (73-393); Potassium 3.7 mmol/L (3.5-5.1); Protein, Total 7.7 g/dL (6.4-8.2); Sodium Level 141 mmol/L (136-145)
[2018-03-21 11:43] LABS: Urine Blood NEGATIVE (NEG); Urine Glucose NEGATIVE (NEG); Urine Protein NEGATIVE (NEG); Urine Specific Gravity 1.005 (1.005-1.030); Urine pH 5.5 (5.0-7.0)
[2018-03-21] MEDS ORDERED: MORPHINE 4 MG/ML SYR ONE (12:14)
--- NOTE | 2018-03-21 12:27 | RAD REPORT ---
EXAM DESCRIPTION: CTAbdomen Pelvis W Contrast - 03/21/2018 12:19 pm CLINICAL HISTORY: Abdominal pain. abdominal pain, IV ONLY COMPARISON: Abdomen Pelvis W Contrast dated 09/19/2016 TECHNIQUE: Biphasic CT imaging of the abdomen and pelvis was performed with 100 ml non-ionic IV cont rast. All CT scans are performed using dose optimization technique as appropriate and may include automated exposure control or mA/KV adjustment according to patient size. FINDINGS: The lung bases are clear. The liver demonstrates mild fatty infiltration. Cholecystectomy clips are seen. The spleen, pancreas, adrenal glands and kidneys are within normal limits. No bowel obstruction, free air, free fluid or abscess. The appendix is normal. No evidence of signi ficant lymphadenopathy. No suspicious bony findings. IMPRESSION: No acute intra-abdominal or pelvic finding. Mild fatty liver.
[2018-03-21] MEDS ORDERED: KETOROLAC 30 MG/ML INJ ONE (13:12)
[2018-03-21] MEDS ORDERED: FENTANYL CITR 100 MCG/2 ML ONE (13:12)
--- NOTE | 2018-03-21 13:37 | ER ---
Nurse's Notes [facility] Name: Maykel Levin Jr Age: 42 yrs Sex: Male : 1975 Arrival Date: 03/21/2018 Time: 10:03 Bed 16 Private MD: Shakir Ribeiro Diagnosis: Other abdominal pain Presentation: 03/21 10:14 Presenting complaint: Patient states: "My liver specialist told me to come in because aj1 when I urinated it was neon green. I just found out F4 fibrosis of the liver" Patient also reports pain to the the RUQ, dizziness, and nausea. Denies fever. Denies V/D. Transition of care: patient was not received from another setting of care. Onset of symptoms was March 21, 2018. Risk Assessment: Do you want to hurt yourself or someone else? Patient reports no desire to harm self or others. Initial Sepsis Screen: Does the patient meet any 2 criteria? No. Patient's initial sepsis screen is negative. Does the patient have a suspected source of infection? Yes: Acute abdominal pain. Care prior to arrival: None. 10:14 Method Of Arrival: Ambulatory aj1 10:14 Acuity: ANT 3 aj1 Triage Assessment: 10:17 General: Appears in no apparent distress. uncomfortable, Behavior is calm, cooperative, aj1 appropriate for age. Pain: Complains of pain in right upper quadrant Pain currently is 4 out of 10 on a pain scale. Neuro: Level of Consciousness is awake, alert, obeys commands. Cardiovascular: Patient's skin is warm and dry. Respiratory: Airway is patent Respiratory effort is even, unlabored, Respiratory pattern is regular, symmetrical. GI: Reports upper abdominal pain, nausea. Historical: - Allergies: 10:17 No Known Allergies; aj1 - Home Meds: 10:17 losartan Oral [Active]; Metformin Oral [Active]; gabapentin oral oral [Active]; aj1 "cholesterol medication that starts with a r" [Active]; "migraine medication that starts with a v" [Active]; - PMHx: 10:17 Diabetes - NIDDM; Hypertension; Pancreatitis; fibrosis of the liver; Migraines; aj1 Hyperlipidemia; - PSHx: 10:17 Cholecystectomy; aj1 - Immunization history:: Flu vaccine is not up to date. - Social history:: Smoking status: Patient/guardian denies using tobacco. - Ebola Screening: : Patient denies travel to an Ebola-affected area in the 21 days before illness onset. Screenin:00 Abuse screen: Denies threats or abuse. Denies injuries from another. Nutritional sg screening: No deficits noted. Tuberculosis screening: No symptoms or risk factors identified. Never had TB. Fall Risk None identified. Assessment: 11:00 General: Appears in no apparent distress. well groomed, well developed, well nourished, sg Behavior is calm, cooperative, appropriate for age. Pain: Complains of pain in right upper quadrant Quality of pain is described as aching, crampy. Neuro: No deficits noted. Cardiovascular: Capillary refill is brisk in bilateral fingers Patient's skin is warm and dry. Chest pain is denied. Respiratory: Airway is patent Respiratory effort is even, unlabored, Respiratory pattern is regular, symmetrical. GI: Abdomen is round non-distended, Bowel sounds present X 4 quads. Abd is soft X 4 quads Abdomen is tender to palpation in right upper quadrant. : No signs and/or symptoms were reported regarding the genitourinary system. EENT: No signs and/or symptoms were reported regarding the EENT system. Derm: Skin is pink, warm \\T\\ dry. Musculoskeletal: No signs and/or symptoms reported regarding the musculoskeletal system. Vital Signs: 10:17 BP 140 / 97; Pulse 71; Resp 16; Temp 97.4; Pulse Ox 97% on R/A; Weight 92.99 kg (R); aj1 Height 5 ft. 7 in. (170.18 cm) (R); Pain 4/10; 11:21 BP 127 / 81; Pulse 68; Resp 17; Pulse Ox 98% on R/A; Pain 4/10; sg 14:00 BP 108 / 77; Pulse 67; Resp 17; Pulse Ox 98% on R/A; sg 10:17 Body Mass Index 32.11 (92.99 kg, 170.18 cm) aj1 ED Course: 10:03 Patient arrived in ED. as 10:04 Shakir Ribeiro MD is Private Physician. as 10:16 Triage completed. aj1 10:17 Arm band placed on Patient placed in an exam room. aj1 10:19 Jeff Padilla PA is PHCP. [facility] 10:19 Mendez James MD is Attending Physician. jmm 10:39 Hiram Carvajal, RN is Primary Nurse. 10:45 Radiology exam delayed due to lab results not completed at this time. jg6 11:00 Patient has correct armband on for positive identification. Bed in low position. Call sg light in reach. Pulse ox on. NIBP on. 11:00 Initial lab(s) drawn, by me, sent to lab. Inserted saline lock: 20 gauge in left sg antecubital area, using aseptic technique. Blood collected. 11:01 Urine collected: clean catch specimen, clear. 3 12:20 CT Abd/Pelvis - W/Contrast In Process Unspecified. EDMS 14:15 No provider procedures requiring assistance completed. IV discontinued, intact, sg bleeding controlled, No redness/swelling at site. Pressure dressing applied. Administered Medications: 11:00 Drug: Zofran 4 mg Route: IVP; Site: left antecubital; sg 12:01 Follow up: Response: No adverse reaction; Pain is unchanged, physician notified; Nausea sg is decreased 12:12 Drug: morphine 4 mg Route: IVP; Site: left antecubital; sg 13:00 Follow up: Response: No adverse reaction; Pain is decreased sg 12:56 CANCELLED (othe rmedication used): Dilaudid 0.5 mg IVP once [facility] 13:20 Drug: Ketorolac 30 mg Route: IVP; Site: left antecubital; sg 13:20 Drug: fentaNYL (PF) 50 mcg Route: IVP; Site: left antecubital; sg Outcome: 13:36 Discharge ordered by MD. [facility] 14:15 Discharged to home with family. 14:15 Condition: good 14:15 Discharge instructions given to patient, Instructed on discharge instructions, follow up and referral plans. medication usage, safety practices, Demonstrated understanding of instructions, follow-up care, medications, Prescriptions given X 1. 14:19 Patient left the ED. sg Signatures: Dispatcher [employer] EDMS Serena Wills, RN RN aj1 Hiram Carvajal, RN RN sg Jeff Padilla PA PA jmm Martinez, Amelia as Herrera, Deanna 3 Darshana Hernandez jg6
--- NOTE | 2018-03-21 13:37 | EDPHYS ---
Physician Documentation [facility] Name: Maykel Levin Jr Age: 42 yrs Sex: Male : 1975 Arrival Date: 03/21/2018 Time: 10:03 Bed 16 Private MD: Shakir Ribeiro ED Physician Mendez James HPI: 03/21 10:30 This 42 yrs old Male presents to ER via Ambulatory with complaints of jmm Abdominal Pain. 10:30 The patient presents with abdominal pain in the epigastric area. Onset: The jmm symptoms/episode began/occurred gradually, 1 month(s) ago. The symptoms do not radiate. Associated signs and symptoms: Pertinent positives: dysuria, nausea. This is a 42 year old male with a history of recently diagnosed with liver cirhosis, DM, HTN, that presents to the ED with progressively worsening abdominal pain and nausea. Patient states his urine was bright green today and was advised to go the ED for further evaluation. . Historical: - Allergies: 10:17 No Known Allergies; aj1 - Home Meds: 10:17 losartan Oral [Active]; Metformin Oral [Active]; gabapentin oral oral [Active]; aj1 "cholesterol medication that starts with a r" [Active]; "migraine medication that starts with a v" [Active]; - PMHx: 10:17 Diabetes - NIDDM; Hypertension; Pancreatitis; fibrosis of the liver; Migraines; aj1 Hyperlipidemia; - PSHx: 10:17 Cholecystectomy; aj1 - Immunization history:: Flu vaccine is not up to date. - Social history:: Smoking status: Patient/guardian denies using tobacco. - Ebola Screening: : Patient denies travel to an Ebola-affected area in the 21 days before illness onset. ROS: 10:30 Constitutional: Negative for fever, chills, and weight loss, Cardiovascular: Negative jmm for chest pain, palpitations, and edema, Respiratory: Negative for shortness of breath, cough, wheezing, and pleuritic chest pain. 10:30 MS/Extremity: Negative for injury and deformity, Skin: Negative for injury, rash, and discoloration, Neuro: Negative for headache, weakness, numbness, tingling, and seizure. 10:30 Abdomen/GI: Positive for abdominal pain, nausea. 10:30 : Positive for urinary symptoms. 10:30 All other systems are negative. Exam: 10:30 Head/Face: atraumatic. Eyes: EOMI, no conjunctival erythema appreciated ENT: Moist jmm Mucus Membranes Neck: Trachea midline, Supple Chest/axilla: Normal chest wall appearance and motion. 10:30 Constitutional: The patient appears in no acute distress, alert, awake. 10:30 Cardiovascular: Rate: normal, Rhythm: regular, Pulses: no pulse deficits are appreciated. 10:30 Respiratory: the patient does not display signs of respiratory distress, Respirations: normal, Breath sounds: are clear throughout. 10:30 Abdomen/GI: Inspection: abdomen appears normal, Bowel sounds: normal, Palpation: soft, mild abdominal tenderness, in the right upper quadrant. 10:30 Skin: Appearance: Color: normal in color. 10:30 Neuro: Orientation: is normal, Mentation: is normal, Memory: is normal, Gait: is steady. 10:30 Psych: Behavior/mood is pleasant, cooperative. Vital Signs: 10:17 BP 140 / 97; Pulse 71; Resp 16; Temp 97.4; Pulse Ox 97% on R/A; Weight 92.99 kg (R); aj1 Height 5 ft. 7 in. (170.18 cm) (R); Pain 4/10; 11:21 BP 127 / 81; Pulse 68; Resp 17; Pulse Ox 98% on R/A; Pain 4/10; sg 14:00 BP 108 / 77; Pulse 67; Resp 17; Pulse Ox 98% on R/A; sg 10:17 Body Mass Index 32.11 (92.99 kg, 170.18 cm) aj1 MDM: 10:30 Patient medically screened. [facility] 13:36 Data reviewed: vital signs, nurses notes. Counseling: I had a detailed discussion with hillary the patient and/or guardian regarding: the historical points, exam findings, and any diagnostic results supporting the discharge/admit diagnosis, radiology results, the need for outpatient follow up, to return to the emergency department if symptoms worsen or persist or if there are any questions or concerns that arise at home. 13:36 ED course: Patient's pain was partially relieved in the ED. CT imaging negative. Labs jmm appear consistent with previous from 1 month prior. I do not currently suspect an acute intraabdominal process. I advised the patient of the need for close GI follow up with his GI. Patient was otherwise given strict return precautions. Patient understood and agrees with the plan of care. . 03/21 10:35 Order name: Basic Metabolic Panel; Complete Time: 11:37 m 03/21 10:35 Order name: CBC with Diff; Complete Time: 11:37 jmm 03/21 10:35 Order name: Creatinine for Radiology; Complete Time: 11:37 m 03/21 10:35 Order name: Hepatic Function; Complete Time: 11:37 [facility] 03/21 10:35 Order name: Lipase; Complete Time: 11:37 [facility] 03/21 11:04 Order name: Urine Dipstick--Ancillary (enter results); Complete Time: 11:47 eb 03/21 10:35 Order name: IV Saline Lock; Complete Time: 10:39 m 03/21 10:35 Order name: Labs collected and sent; Complete Time: 10:39 [facility] 03/21 10:35 Order name: CT Abd/Pelvis - W/Contrast; Complete Time: 12:30 jmm Administered Medications: 11:00 Drug: Zofran 4 mg Route: IVP; Site: left antecubital; sg 12:01 Follow up: Response: No adverse reaction; Pain is unchanged, physician notified; Nausea sg is decreased 12:12 Drug: morphine 4 mg Route: IVP; Site: left antecubital; sg 13:00 Follow up: Response: No adverse reaction; Pain is decreased sg 12:56 CANCELLED (othe rmedication used): Dilaudid 0.5 mg IVP once jm 13:20 Drug: Ketorolac 30 mg Route: IVP; Site: left antecubital; sg 13:20 Drug: fentaNYL (PF) 50 mcg Route: IVP; Site: left antecubital; sg Disposition: 16:35 Co-signature as Attending Physician, Mendez James MD. rn Disposition: 03/21/18 13:36 Discharged to Home. Impression: Other abdominal pain. - Condition is Stable. - Discharge Instructions: Abdominal Pain, Adult. - Prescriptions for Ultracet 37.5- 325 mg Oral Tablet - take 1 tablet by ORAL route every 6 hours - for up to 5 days; do not exceed 8 tablets per day.; 20 tablet. - Work release form, Medication Reconciliation Form, Thank You Letter, Antibiotic Education, Prescription Opioid Use form. - Follow up: Private Physician; When: 2 - 3 days; Reason: Recheck today's complaints, Continuance of care, Re-evaluation by your physician. Signatures: Dispatcher [employer] EDSerena Knott RN RN aj1 Hiram Carvajal RN RN sg Jeff Padilla PA PA jmm Nieto, Roman, MD MD corn sheller: (The following items were deleted from the chart) 12:56 12:55 Dilaudid 0.5 mg IVP once ordered. hillary thornton 14:19 13:36 03/21/2018 13:36 Discharged to Home. Impression: Other abdominal pain. Condition sg is Stable. Forms are Medication Reconciliation Form, Thank You Letter, Antibiotic Education, Prescription Opioid Use. Follow up: Private Physician; When: 2 - 3 days; Reason: Recheck today's complaints, Continuance of care, Re-evaluation by your physician. hillary
== END 2018-03-21 14:19 | disposition home or self-care (01) ==
LOC: ER 10:01
DX: R10.9 Unspecified abdominal pain (principal); I10 Essential (primary) hypertension; E11.9 Type 2 diabetes mellitus without complications; E78.5 Hyperlipidemia, unspecified
CPT/HCPCS: 36415; 74177; 80048; 80076; 81003; 83690; 85025; 96374; 96375; 99284; J2405; J3010; Q9967

== ENCOUNTER 2019-04-30 06:17 | Emergency (ER) | payer OTHER, SELFPAY ==
--- OUTSIDE RECORDS SUMMARY | 2019-04-30 06:18 | XMS REPORT ---
:1975 [facility] Address [address] [place] [address] [address] [place] [address] Care Team Providers Name Role Phone SIMONE JULIANO Latoya Unavailable Unavailable Problems This patient has no known problems. Allergies, Adverse Reactions, Alerts This patient has no known allergies or adverse reactions. Medications This patient has no known medications. Results Test Description Test Time Test Comments Text Results Atomic Results Result Comments U/S, ABDOMINAL, 2019-04-17 REFERRING MD: CLOVER FINAL REPORT PATIENT COMPLETE 12:01:00 MILADISSARAVANANAna for ID: [id number] Exam:->cirrhosis, History: Cirrhosis, screening for cancer screening for malignancy. Findings: Correlation is made with patient's previous study performed October 20, 2018. Real-time sonographic examination of the abdomen reveals a relatively small diffusely echogenic and coarsened liver measuring up to 13.4 cm in length. No focal hepatic abnormalities or masses are identified. The gallbladder is absent, consistent with prior cholecystectomy. No intra or extrahepatic biliary ductal dilatation is present. The common bile duct measures up to 4 mm in diameter. The portal vein measures 12 mm in diameter and appears patent by Limited color Doppler examination. The spleen is normal size and echogenicity measuring up to 11.2 cm in length. No focal splenic abnormalities. Right and left kidneys are normal size and echogenicity measuring up to 11.4 and 12.4 cm in length, respectively. There are no visible masses, cysts, stones or evidence for obstruction. The pancreas is unremarkable where visible but incompletely imaged and compared to overlying bowel gas. Aorta and IVC are unremarkable where visible. No ascites or abdominal fluid collections. IMPRESSION: 1. Probable diffuse fatty infiltration of the liver, as before. No focal hepatic masses or abnormalities are identified. 2. Status post cholecystectomy. No acute biliary abnormalities. 3. Incomplete evaluation the pancreas secondary to overlying bowel gas. Signed: Rony Blum MDReport Verified Date/Time: 04/17/2019 12:01:59 Reading Location: [address] Radiology Reading Room U/S, ABDOMINAL, 2018-10-20 REFERRING MD: CLOVER FINAL REPORT PATIENT COMPLETE 10:52:00 Frank Sosa ID: [id number] 2019Reason for TECHNIQUE: Grayscale Exam:->cirrhosis ultrasound of the abdomen. INDICATION: 2-year-old man with cirrhosis. COMPARISON: Abdomen MRI 03/26/2018. FINDINGS: MIDLINE VASCULATURE: The visualized inferior vena cava is patent. Portal vein is patent and measures 1.1 cm in diameter. The maximum visualized aortic diameter is 2.1 cm. LIVER: The liver is normal in size. Increased echogenicity of the liver, consistent with hepatic steatosis. No focal lesions. BILIARY:Gallbladder: Prior cholecystectomy.Common bile duct measures 0.6 cm, within normal limits. No intrahepatic biliary ductal dilatation. PANCREAS: Visualized portions of the pancreas are unremarkable. SPLEEN: No splenomegaly. PERITONEUM: No free fluid. KIDNEYS: Both kidneys are normal in size. No hydronephrosis. No sonographically evident solid mass lesion. IMPRESSION:Hepatic steatosis. No focal liver lesion. Signed: Gabo Motley MDReport Verified Date/Time: 10/20/2018 10:52:16 Reading Location: [address] Radiology Reading Room UE EXAM 2018-04-03 Surgical Pathology 08:51:00 Report Case: [id number] Authorizing Provider: Juliano Low MD Collected: Ordering Location: [facility] 6 OP Received: 03/28/2018 1419 Pathologist: Samantha White MD Specimen: Biopsy, Liver LIVER, TRANSJUGULAR RANDOM NEEDLE CORE BIOPSY: - STEATOHEPATITIS, STAGE 4 FIBROSIS (CIRRHOSIS) - MILD MACRO STEATOSIS - MILD LOBULAR INFLAMMATION - BALLOONED HEPATOCYTES PRESENT Signing Pathologist Direct Phone Line: [phone] ally signed by Samantha White MD on 04/03/2018 at 8:51 [place] this 42-year-old male with AST 41, ALT 68, alkaline phosphatase 1.6, total bilirubin 0.5 from October 2016, AMA and ASMA negative. Hepatitis-B marker negative. The findings are consistent with serohepatitis with cirrhosis. Clinical correlation is recommended. The non-alcoholic steatohepatitis (INGRID) activity scoring is performed according to guidelines from non-alcoholic steatohepatitis, clinical research network (Uzma, et al. Hepatology 2005. 41:1313-21), at the request of the clinician The INGRID score is: Steatosis: Grade 1 + lobular inflammation, grade 1 + hepatocyte ballooning score 2=4/8. The fibrosis score is 4 of [id number] of liver. Transjugular liver biopsy Specimen is received in formalin-filled container labeled with the patient's information and labeled "transjugular liver biopsy" and consists of five saleh cores ranging in length from 0.3 to 1.2 cm submitted entirely A1. CG/bc There are cores with adequate number of portal triads and preserved hepatic parenchyma and partly nodular hepatic parenchyma. There is mild macro steatosis noted in approximately 30% of the hepatocytes. There is mild nodular inflammation comprised of histiocytes and lymphocytes. Ballooned hepatocytes noted associated with steatosis with some showing Alem hyalin. Perivenular area shows pericellular fibrosis. Trichrome stain shows portal, periportal, perivenular and pericellular fibrosis with focal areas of bridging and some nodule formation suggestive of stage 4 fibrosis (cirrhosis). PAS-D stain is negative for alpha-1 antitrypsin globules. Iron stain show focally increased iron (1+) with few hepatocytes . Reticulin stain shows areas of regeneration. OSCAR, TRANSCATHETER 2018-03-28 FINAL REPORT PATIENT BIOPSY 09:56:00 ID: [id number] Transjugular liver biopsy. History: Cirrhosis. Modality: Ultrasound and fluoroscopy. Sedation: Moderate sedation was administered. 2 mg of Versed and 100 mcg of fentanyl IV was used for moderate sedation monitored under my direction. Total intra-service time of sedation was 30 minutes. The patient's vital signs were monitored throughout the procedure and recorded in the patient's medical record by the nurse. Floor Scraper: Jovanni Phan MD. [employer] Consultant: Jacobo Longoria (fellow). Delfina Beard (resident). Approach: Right internal jugular vein Estimated blood loss: < 5 cc. Specimen: Four 19-gauge core specimens placed within formalin and sent to pathology. Fluoroscopy Time: 6.4 min.Reference Air Kerma (Ka, r): 156.1 mGy. Technique: Informed written consent was obtained. Discussion of risks, benefits, and alternatives were made with the patient. The patient expressed understanding and agreed to proceed. A universal timeout was performed prior to starting the procedure. All elements maximal sterile barrier technique was utilized for this procedure, including utilization of sterile scrub solution for skin prep, a large sterile sheet to cover the areas of the patient that were not prepped, and hand hygiene, mask, head covering, and sterile gown for performing radiologist and scrub technologist. Ultrasound evaluation showed a patent and compressible right internal jugular vein, which was punctured under direct real-time ultrasound guidance with a micropuncture needle. An ultrasound image was saved to PACS. A 0.018 inch wire was placed through the needle into the right atrium. A 4 Montenegrin micropuncture sheath was placed. A 0.035 inch J-wire was placed through the micropuncture sheath and the sheath was exchanged for a 9 Montenegrin sheath. A 5 Montenegrin angled tip catheter was used to select the right hepatic vein. Venogram was performed. Pressures were obtained through the catheter with measurements as follows: wedged hepatic - 9 mmHg, free hepatic - 7, and right atrium - 5. A long metal reinforced 7 Montenegrin sheath was placed through the 9 Montenegrin sheath into the right hepatic vein. A long 19-gauge core biopsy needle was then placed through sheath with 4 core samples obtained within the liver. The needle and sheath were removed. Hemostasis was obtained with manual compression. The patient tolerated the procedure well and left the department in the same condition. Findings: Venogram demonstrates patent right hepatic vein and intrahepatic IVC. Impression: Successful, uncomplicated transjugular liver biopsy, using fluoroscopic guidance and conscious sedation. HVPG 2 mmHg. Signed: Jovanni Phan MDReport Verified Date/Time: 03/28/2018 09:56:20 Reading Location: [place] [address] Angio Body Reading Room REHENSIVE METABOLIC PANEL 2018-03-28 06:46:00 Test Item Value Reference Range Comments TOTAL PROTEIN (BEAKER) (test 7.1 gm/dL 6.0-8.3 nhpw=178) ALBUMIN (BEAKER) (test 4.1 g/dL 3.5-5.0 qgtg=8091) ALKALINE PHOSPHATASE 77 U/L 40-150 (BEAKER) (test tcjp=190) BILIRUBIN TOTAL (BEAKER) 1.6 mg/dL 0.2-1.2 (test vpyf=536) SODIUM (BEAKER) (test 142 meq/L 136-145 sqbu=287) POTASSIUM (BEAKER) (test 3.7 meq/L 3.5-5.1 givh=703) CHLORIDE (BEAKER) (test 108 meq/L 98-107 vyto=608) CO2 (BEAKER) (test idlq=162) 25 meq/L 22-29 BLOOD UREA NITROGEN (BEAKER) 7 mg/dL 7-21 (test pemn=377) CREATININE (BEAKER) (test 0.77 mg/dL 0.57-1.25 mykc=628) GLUCOSE RANDOM (BEAKER) 137 mg/dL 70-105 (test qvhi=260) CALCIUM (BEAKER) (test 8.9 mg/dL 8.4-10.2 qmqk=863) AST (SGOT) (BEAKER) (test 41 U/L 5-34 qfvp=428) ALT (SGPT) (BEAKER) (test 68 U/L 6-55 ylfz=913) EGFR (BEAKER) (test 110 mL/min/1.73 sq m ESTIMATED GFR IS NOT mydg=3780) ACCURATE CREATININE CLEARANCE IN PREDICTING GLOMERULAR FILTRATION RATE. ESTIMATED GFR IS NOT APPLICABLE FOR DIALYSIS PATIENTS. [id number] 06:39:00 Test Item Value Reference Range Comments PROTIME (BEAKER) (test qhvo=260) 15.0 seconds 11.7-14.7 INR (BEAKER) (test tfjd=948) 1.2 <=5.9 PARTIAL THROMBOPLASTIN TIME (BEAKER) (test 30.7 seconds 22.5-36.0 vtqg=229) RECOMMENDED COUMADIN/WARFARIN INR THERAPY RANGESSTANDARD DOSE: 2.0 - 3.0 Includes: PROPHYLAXIS forvenous thrombosis, systemic embolization; TREATMENT for venous thrombosis and/or pulmonary embolus.HIGH RISK: Target INR is 2.5-3.5 for patients with mechanical heart valves.PLATELET [id number] 06:29:00 Test Item Value Reference Range Comments PLATELET COUNT (BEAKER) (test gldz=858) 183 K/CU MM 150-450 MR, ABDOMEN, [id number] 11:11:00REFERRING MD: CLOVER PHIPPS REPORT TECHNIQUE: MRI of the abdomen WITHOUT and WITH intravenous contrast. INDICATION: 42-year-old man with portal hypertension and cirrhosis. COMPARISON: Abdomen and pelvis CT 11/01/2016. FINDINGS: LOWER THORAX : Unremarkable. LIVER: No overt cirrhosis or hepatic steatosis. No focal hepatic lesions. BILIARY: Prior cholecystectomy. No biliary ductal dilatation or filling defect.SPLEEN: The spleen is enlarged, measuring 14.1 cm in the anteroposterior dimension.PANCREAS: No focal masses or ductal dilatation. ADRENALS: No adrenal nodules.KIDNEYS/URETERS: No hydronephrosis or solid mass lesions. Subcentimeter left renal cyst. PERITONEUM/RETROPERITONEUM: No free fluid.LYMPHNODES: No lymphadenopathy.VESSELS: Unremarkable. The main portal vein is within normal limits in caliber, measuring 1.2 cm in diameter. GI TRACT : No distention or wall thickening. BONES AND SOFT TISSUES: Unremarkable. IMPRESSION:No overt cirrhosis or hepatic steatosis. No focal liver lesions. Splenomegaly. Signed: Gabo Motley MDReport Verified Date/Time: 03/26/2018 11:11:24 Reading Location: [address] Body Reading Room URINALYSIS W/ [id number] 14:50:00 Test Item Value Reference Range Comments COLOR (BEAKER) (test dcwc=131) Light Yellow CLARITY (BEAKER) (test btnt=251) Clear SPECIFIC GRAVITY UA (BEAKER) (test 1.001 1.001-1.035 wksz=261) PH UA (BEAKER) (test tzhb=889) 5.0 5.0-8.0 PROTEIN UA (BEAKER) (test rdjh=235) Negative Negative GLUCOSE UA (BEAKER) (test xbbn=505) 1000 mg/dL Negative KETONES UA (BEAKER) (test cood=559) Negative Negative BILIRUBIN UA (BEAKER) (test whkn=654) Negative Negative BLOOD UA (BEAKER) (test powk=562) Negative Negative NITRITE UA (BEAKER) (test rrey=338) Negative Negative LEUKOCYTE ESTERASE UA (BEAKER) (test Negative Negative aehz=434) UROBILINOGEN UA (BEAKER) (test htrt=955) 0.2 mg/dL 0.2-1.0 RBC UA (BEAKER) (test vvri=407) 0 /HPF WBC UA (BEAKER) (test ilrt=018) 0 /HPF SOURCE(BEAKER) (test azas=3795) Urine, Clean Catch BASIC METABOLIC [id number] 14:23:00 Test Item Value Reference Range Comments SODIUM (BEAKER) (test 137 meq/L 136-145 tzoy=953) POTASSIUM (BEAKER) (test 3.9 meq/L 3.5-5.1 qtxn=639) CHLORIDE (BEAKER) (test 107 meq/L 98-107 zbyk=031) CO2 (BEAKER) (test 23 meq/L 22-29 fmnv=393) BLOOD UREA NITROGEN 10 mg/dL 7-21 (BEAKER) (test owmp=500) CREATININE (BEAKER) (test 0.85 mg/dL 0.57-1.25 phmg=675) GLUCOSE RANDOM (BEAKER) 85 mg/dL 70-105 (test hytt=151) CALCIUM (BEAKER) (test 9.0 mg/dL 8.4-10.2 rwfk=659) EGFR (BEAKER) (test mL/min/1.73 sq m INSUFFICIENT CLINICAL DATA kkvf=7915) TO CALCULATE ESTIMATED GFR. [id number] 14:20:00 Test Item Value Reference Range Comments LIPASE (BEAKER) (test rqxf=280) 71 U/L 8-78 [id number] 14:20:00 Test Item Value Reference Range Comments AMYLASE (BEAKER) (test njrm=455) 75 U/L 25-125 HEPATIC FUNCTION [id number] 14:20:00 Test Item Value Reference Range Comments TOTAL PROTEIN (BEAKER) (test lqou=427) 7.4 gm/dL 6.0-8.3 ALBUMIN (BEAKER) (test xlcq=4330) 4.2 g/dL 3.5-5.0 BILIRUBIN TOTAL (BEAKER) (test poox=222) 1.7 mg/dL 0.2-1.2 BILIRUBIN DIRECT (BEAKER) (test ndev=357) 0.5 mg/dL 0.1-0.5 ALKALINE PHOSPHATASE (BEAKER) (test uahn=759) 54 U/L 40-150 AST (SGOT) (BEAKER) (test vzfp=406) 31 U/L 5-34 ALT (SGPT) (BEAKER) (test igak=186) 42 U/L 6-55 CBC W/PLT COUNT & AUTO [id number] 14:06:00 Test Item Value Reference Range Comments WHITE BLOOD CELL COUNT (BEAKER) (test ovaw=538) 6.7 K/ L 4.0-10.0 RED BLOOD CELL COUNT (BEAKER) (test aojf=272) 5.15 M/ L 4.20-5.80 HEMOGLOBIN (BEAKER) (test wrvn=249) 16.1 GM/DL 13.0-16.8 HEMATOCRIT (BEAKER) (test irdf=082) 45.5 % 40.0-50.0 MEAN CORPUSCULAR VOLUME (BEAKER) (test fykx=696) 88.4 fL 82.0-98.0 MEAN CORPUSCULAR HEMOGLOBIN (BEAKER) (test 31.3 pg 27.0-33.0 ozlt=173) MEAN CORPUSCULAR HEMOGLOBIN CONC (BEAKER) (test 35.5 GM/DL 32.0-36.0 yfbn=808) RED CELL DISTRIBUTION WIDTH (BEAKER) (test 13.0 % 10.3-14.2 mkpb=852) PLATELET COUNT (BEAKER) (test eigi=356) 197 K/CU MM 150-430 MEAN PLATELET VOLUME (BEAKER) (test cali=243) 7.5 fL 6.5-10.5 NUCLEATED RED BLOOD CELLS (BEAKER) (test 0 /100 WBC 0-0 tawx=694) NEUTROPHILS RELATIVE PERCENT (BEAKER) (test 59 % rcem=236) LYMPHOCYTES RELATIVE PERCENT (BEAKER) (test 34 % lxik=354) MONOCYTES RELATIVE PERCENT (BEAKER) (test 5 % kcwh=077) EOSINOPHILS RELATIVE PERCENT (BEAKER) (test 1 % sgup=080) BASOPHILS RELATIVE PERCENT (BEAKER) (test 1 % zzed=720) NEUTROPHILS ABSOLUTE COUNT (BEAKER) (test 3.98 K/ L 1.80-8.00 vkyq=565) LYMPHOCYTES ABSOLUTE COUNT (BEAKER) (test 2.26 K/ L 1.48-4.50 fyem=266) MONOCYTES ABSOLUTE COUNT (BEAKER) (test 0.33 K/ L 0.00-1.30 zdwu=526) EOSINOPHILS ABSOLUTE COUNT (BEAKER) (test 0.09 K/ L 0.00-0.50 wpdu=809) BASOPHILS ABSOLUTE COUNT (BEAKER) (test 0.07 K/ L 0.00-0.20 agrl=718) 0.00
[2019-04-30] MEDS ORDERED: FAMOTIDINE 20 MG/2 ML VIAL IV ONE (06:46)
[2019-04-30] MEDS ORDERED: MORPHINE 4 MG/ML SYR ONE ×2 (06:46→07:54)
[2019-04-30] MEDS ORDERED: ONDANSETRON 4 MG/2 ML VIAL ONE ×3 (06:46→10:10)
[2019-04-30] MEDS ORDERED: NA CHLORIDE 0.9% 2,000 ML ONE (06:46)
[2019-04-30 07:39] LABS: Absolute Lymphocytes (CBC) 1.7 K/uL (0.7-4.9); Lymphocytes % 27.8 % (15.3-44.8); MPV 9.2 fL (7.6-11.3); RBC Red Blood Cell Count 5.14 M/uL (4.33-5.43)
[2019-04-30 07:41] LABS: ALT/SGPT 58 U/L (12-78); AST/SGOT 40 U/L (15-37); Albumin 4.1 g/dL (3.4-5.0); Alkaline Phosphatase 73 U/L (45-117); BUN Blood Urea Nitrogen 8 mg/dL (7-18); Bicarbonate 27 mmol/L (21-32); Bilirubin Direct 0.5 mg/dL (0-0.2); Bilirubin Total 2.7 mg/dL (0.2-1.0); Glucose Level 141 mg/dL (74-106); Lipase 218 U/L (73-393); Potassium 3.6 mmol/L (3.5-5.1); Protein, Total 7.6 g/dL (6.4-8.2); Sodium Level 139 mmol/L (136-145)
[2019-04-30 08:20] LABS: Urine Blood NEGATIVE (NEG); Urine Glucose NEGATIVE (NEG); Urine Protein NEGATIVE (NEG)
--- NOTE | 2019-04-30 09:19 | RAD REPORT ---
EXAM DESCRIPTION: CT - Abdomen Pelvis W Contrast - 04/30/2019 8:48 am CLINICAL HISTORY: Abdominal pain. COMPARISON: 2018 TECHNIQUE: Computed axial tomography of the abdomen and pelvis was obtained. 100 cc Isovue-300 is ad ministered intravenously. Oral contrast was given. All CT scans are performed using dose optimization technique as appropriate and may include automated exposure control or mA/KV adjustment according to patient size. FINDINGS: Cholecystectomy Mild fatty liver Spleen, pancreas, adrenals and kidneys appear unremarkable. The appendix is normal caliber. There is no evidence of diverticulitis IMPRESSION: No acute abnormality displayed
--- NOTE | 2019-04-30 09:23 | ER ---
Nurse's Notes [facility] Name: Maykel Levin Jr Age: 43 yrs Sex: Male : 1975 Arrival Date: 04/30/2019 Time: 06:20 Bed 7 Private MD: Diagnosis: Unspecified cirrhosis of liver;Type 2 diabetes mellitus;Abdominal tenderness Presentation: 04/30 06:27 Presenting complaint: Patient states: he's been having generalized abdominal pain for aa1 awhile now and was seen by his GI doctor a couple days ago and states he had a normal MRI of his abd/pelvis, blood work and ultrasound but he is still having pain. States, "And my stomach has been gurgling a lot and making a lot of noise.". Transition of care: patient was not received from another setting of care. Onset of symptoms was March 2019. Risk Assessment: Do you want to hurt yourself or someone else? Patient reports no desire to harm self or others. Initial Sepsis Screen: Does the patient meet any 2 criteria? No. Patient's initial sepsis screen is negative. Does the patient have a suspected source of infection? No. Patient's initial sepsis screen is negative. Care prior to arrival: None. 06:27 Method Of Arrival: Ambulatory aa1 06:27 Acuity: ANT 3 aa1 Historical: - Allergies: 06:35 No Known Allergies; aa1 - PMHx: 06:35 Diabetes - NIDDM; Hypertension; High Cholesterol; Cirrhosis; aa1 - PSHx: 06:35 Cholecystectomy; aa1 - Immunization history:: Flu vaccine is up to date. - Social history:: Smoking status: Patient/guardian denies using tobacco. - Ebola Screening: : Patient denies exposure to infectious person Patient denies travel to an Ebola-affected area in the 21 days before illness onset. - Family history:: not pertinent. Screenin:30 Abuse screen: Denies threats or abuse. Denies injuries from another. Nutritional aa1 screening: No deficits noted. Tuberculosis screening: No symptoms or risk factors identified. Fall Risk None identified. Assessment: 06:30 General: Appears in no apparent distress. uncomfortable, Behavior is calm, cooperative, aa1 appropriate for age. Pain: Complains of pain in abdomen Pain currently is 8 out of 10 on a pain scale. Pain began "awhile ago" Is intermittent. Neuro: Level of Consciousness is awake, alert, obeys commands, Oriented to person, place, time, situation, Moves all extremities. Full function Gait is steady. Respiratory: Airway is patent Respiratory effort is even, unlabored, Respiratory pattern is regular, symmetrical. GI: Abdomen is non-distended, Bowel sounds present X 4 quads. Abd is soft X 4 quads Reports lower abdominal pain, upper abdominal pain. : No signs and/or symptoms were reported regarding the genitourinary system. EENT: No signs and/or symptoms were reported regarding the EENT system. Derm: Skin is intact, is healthy with good turgor, Skin is pink, warm \\T\\ dry. Musculoskeletal: Circulation, motion, and sensation intact. Capillary refill < 3 seconds. 07:15 Reassessment: Patient appears in no apparent distress at this time. Patient and/or hb family updated on plan of care and expected duration. Pain level reassessed. Patient is alert, oriented x 3, equal unlabored respirations, skin warm/dry/pink. 07:58 Reassessment: Pt c/o RUQ pain 8/10. Dr. Iniguez notified, repeat morphine and zofran hb administered as ordered. VSS. Family at bedside. 08:55 Reassessment: Patient appears in no apparent distress at this time. Patient and/or hb family updated on plan of care and expected duration. Pain level reassessed. Patient is alert, oriented x 3, equal unlabored respirations, skin warm/dry/pink. 09:48 Reassessment: Pt questions d/c instructions and plan of care, KAREN Diehl informed pt hb requests to speak with her. 10:02 Reassessment: KAREN Diehl at bedside. hb Vital Signs: 06:35 BP 156 / 103; Pulse 75; Resp 18; Temp 97.7; Pulse Ox 99% on R/A; Weight 93.44 kg; aa1 Height 5 ft. 7 in. (170.18 cm); Pain 8/10; 07:35 BP 134 / 92; Pulse 96; Resp 18; Pulse Ox 98% on R/A; mh5 08:30 BP 132 / 88; Pulse 86; Resp 14; Pulse Ox 100% on R/A; Pain 5/10; hb 06:35 Body Mass Index 32.26 (93.44 kg, 170.18 cm) aa1 ED Course: 06:20 Patient arrived in ED. ag3 06:25 Alli Iniguez MD is Attending Physician. vera 06:30 Triage completed. aa1 06:30 Patient has correct armband on for positive identification. Bed in low position. Call aa1 light in reach. Pulse ox on. NIBP on. Warm blanket given. 06:35 Arm band placed on right wrist. aa1 07:04 Inserted saline lock: 20 gauge in right antecubital area, using aseptic technique. oe Blood collected. 07:49 Donya Kerr, RN is Primary Nurse. hb 08:22 Shanita Guy, ABDULAZIZ-C is PHCP. snw 08:48 CT Abd/Pelvis - PO and IV Contrast In Process Unspecified. EDMS 09:22 Dru Bermudez MD is Referral Physician. snw 10:19 No provider procedures requiring assistance completed. IV discontinued, intact, hb bleeding controlled, No redness/swelling at site. Pressure dressing applied. Administered Medications: 06:50 Drug: NS 0.9% 1000 ml Route: IV; Rate: 1 bolus; Site: right antecubital; aa1 09:00 Follow up: Response: No adverse reaction; IV Status: Completed infusion; IV Intake: hb 1000ml 06:50 Drug: NS 0.9% 1000 ml Route: IV; Rate: 1 bolus; Site: right antecubital; aa1 07:50 Follow up: Response: No adverse reaction; IV Status: Completed infusion; IV Intake: hb 1000ml 06:50 Drug: Zofran 4 mg Route: IVP; Site: right antecubital; aa1 07:30 Follow up: Response: No adverse reaction hb 06:52 Drug: Pepcid 20 mg Route: IVP; Site: right antecubital; aa1 07:30 Follow up: Response: No adverse reaction hb 06:53 Drug: morphine 4 mg Route: IVP; Site: right antecubital; aa1 07:30 Follow up: Response: No adverse reaction hb 07:57 Drug: morphine 4 mg {Note: RASS +1.} Route: IVP; Site: right antecubital; hb 08:30 Follow up: Response: No adverse reaction hb 07:57 Drug: Zofran 4 mg Route: IVP; Site: right antecubital; hb 08:30 Follow up: Response: No adverse reaction hb 10:18 Drug: CarafATE 1 grams Route: PO; hb 10:18 Follow up: Response: Medication administered at discharge. hb 10:18 Drug: Zofran 4 mg Route: IVP; Site: right antecubital; hb 10:18 Follow up: Response: Medication administered at discharge. hb Intake: 07:50 IV: 1000ml; Total: 1000ml. hb 09:00 IV: 1000ml; Total: 2000ml. hb Outcome: :22 Discharge ordered by . snw 10:19 Discharged to home ambulatory, with family. hb 10:19 Condition: stable 10:19 Discharge instructions given to patient, Instructed on discharge instructions, follow up and referral plans. medication usage, Demonstrated understanding of instructions, follow-up care, medications, Prescriptions given X 3. 10:19 Patient left the ED. hb Signatures: Dispatcher [employer] EDMS Madeline Roman RN RN aa1 Alli Iniguez MD MD cha Therrien, Shelly, ANESTHESIA RESIDENT-C ANESTHESIA RESIDENT-Csnw Donya Kerr, JUMANA RN Pk Ambrocio Maria [facility] Francisca Petersen3 Corrections: (The following items were deleted from the chart) 07:50 07:49 BP 134 / 92; Pulse 96bpm; Resp 18bpm; Pulse Ox 98% RA; mh5 mh5
--- NOTE | 2019-04-30 09:23 | EDPHYS ---
Physician Documentation [facility] Name: Maykel Levin Jr Age: 43 yrs Sex: Male : 1975 Arrival Date: 04/30/2019 Time: 06:20 Bed 7 Private MD: MIREYA Physician Alli Iniguez HPI: 04/30 06:42 This 43 yrs old Male presents to ER via Ambulatory with complaints of vera Abdominal Pain. 06:42 The patient presents with abdominal pain in the epigastric area, in the upper abdomen, vera in the lower abdomen. Onset: The symptoms/episode began/occurred 1 week(s) ago. The symptoms do not radiate. Associated signs and symptoms: Pertinent positives: nausea. The symptoms are described as burning, constant, crampy. Modifying factors: The symptoms are alleviated by nothing, the symptoms are aggravated by movement, nothing. touching the area, vomiting, walking. Severity of pain: At its worst the pain was moderate in the emergency department the pain is unchanged. The patient has experienced similar episodes in the past, multiple times. Historical: - Allergies: 06:35 No Known Allergies; aa1 - PMHx: 06:35 Diabetes - NIDDM; Hypertension; High Cholesterol; Cirrhosis; aa1 - PSHx: 06:35 Cholecystectomy; aa1 - Immunization history:: Flu vaccine is up to date. - Social history:: Smoking status: Patient/guardian denies using tobacco. - Ebola Screening: : Patient denies exposure to infectious person Patient denies travel to an Ebola-affected area in the 21 days before illness onset. - Family history:: not pertinent. ROS: 06:42 Constitutional: Negative for fever, chills, and weight loss, Eyes: Negative for injury, vera pain, redness, and discharge, ENT: Negative for injury, pain, and discharge, Neck: Negative for injury, pain, and swelling, Cardiovascular: Negative for chest pain, palpitations, and edema, Respiratory: Negative for shortness of breath, cough, wheezing, and pleuritic chest pain, Back: Negative for injury and pain, : Negative for injury, bleeding, discharge, and swelling, MS/Extremity: Negative for injury and deformity, Skin: Negative for injury, rash, and discoloration, Neuro: Negative for headache, weakness, numbness, tingling, and seizure, Psych: Negative for depression, anxiety, suicide ideation, homicidal ideation, and hallucinations, Allergy/Immunology: Negative for hives, rash, and allergies, Endocrine: Negative for neck swelling, polydipsia, polyuria, polyphagia, and marked weight changes, Hematologic/Lymphatic: Negative for swollen nodes, abnormal bleeding, and unusual bruising. 06:42 Abdomen/GI: Positive for abdominal pain, nausea, of the right upper quadrant, left upper quadrant, right lower quadrant and left lower quadrant. Exam: 06:42 Constitutional: This is a well developed, well nourished patient who is awake, alert, vera and in no acute distress. Head/Face: Normocephalic, atraumatic. Eyes: Pupils equal round and reactive to light, extra-ocular motions intact. Lids and lashes normal. Conjunctiva and sclera are non-icteric and not injected. Cornea within normal limits. Periorbital areas with no swelling, redness, or edema. ENT: Nares patent. No nasal discharge, no septal abnormalities noted. Tympanic membranes are normal and external auditory canals are clear. Oropharynx with no redness, swelling, or masses, exudates, or evidence of obstruction, uvula midline. Mucous membranes moist. Neck: Trachea midline, no thyromegaly or masses palpated, and no cervical lymphadenopathy. Supple, full range of motion without nuchal rigidity, or vertebral point tenderness. No Meningismus. Chest/axilla: Normal chest wall appearance and motion. Nontender with no deformity. No lesions are appreciated. Cardiovascular: Regular rate and rhythm with a normal S1 and S2. No gallops, murmurs, or rubs. Normal PMI, no JVD. No pulse deficits. Respiratory: Lungs have equal breath sounds bilaterally, clear to auscultation and percussion. No rales, rhonchi or wheezes noted. No increased work of breathing, no retractions or nasal flaring. Back: No spinal tenderness. No costovertebral tenderness. Full range of motion. Male : Normal genitalia with no discharge or lesions. Skin: Warm, dry with normal turgor. Normal color with no rashes, no lesions, and no evidence of cellulitis. MS/ Extremity: Pulses equal, no cyanosis. Neurovascular intact. Full, normal range of motion. Neuro: Awake and alert, GCS 15, oriented to person, place, time, and situation. Cranial nerves II-XII grossly intact. Motor strength 5/5 in all extremities. Sensory grossly intact. Cerebellar exam normal. Normal gait. Psych: Awake, alert, with orientation to person, place and time. Behavior, mood, and affect are within normal limits. 06:42 Abdomen/GI: Inspection: abdomen appears normal, Bowel sounds: normal, Palpation: moderate abdominal tenderness, in all quadrants, Liver: no appreciated palpable abnormalities, Hernia: not appreciated. Vital Signs: 06:35 BP 156 / 103; Pulse 75; Resp 18; Temp 97.7; Pulse Ox 99% on R/A; Weight 93.44 kg; aa1 Height 5 ft. 7 in. (170.18 cm); Pain 8/10; 07:35 BP 134 / 92; Pulse 96; Resp 18; Pulse Ox 98% on R/A; mh5 08:30 BP 132 / 88; Pulse 86; Resp 14; Pulse Ox 100% on R/A; Pain 5/10; hb 06:35 Body Mass Index 32.26 (93.44 kg, 170.18 cm) aa1 MDM: 06:25 Patient medically screened. [facility] 06:44 Data reviewed: vital signs, nurses notes, lab test result(s), EKG, radiologic studies, [facility] CT scan, ultrasound. 04/30 06:41 Order name: Basic Metabolic Panel; Complete Time: 07:43 [facility] 04/30 06:41 Order name: CBC with Diff; Complete Time: 07:43 [facility] 04/30 06:41 Order name: Creatinine for Radiology; Complete Time: 07:43 [facility] 04/30 06:41 Order name: Hepatic Function; Complete Time: 07:43 [facility] 04/30 06:41 Order name: Lipase; Complete Time: 07:43 [facility] 04/30 06:41 Order name: Urine Culture [facility] 04/30 06:41 Order name: CT Abd/Pelvis - PO and IV Contrast; Complete Time: 09:21 [facility] 04/30 06:44 Order name: AMMONIA; Complete Time: 08:22 [facility] 04/30 08:01 Order name: Urine Dipstick--Ancillary (enter results); Complete Time: 08:22 [facility] 04/30 06:41 Order name: IV Saline Lock; Complete Time: 06:56 [facility] 04/30 06:41 Order name: Labs collected and sent; Complete Time: 06:56 [facility] 04/30 06:41 Order name: Urine Dipstick-Ancillary (obtain specimen); Complete Time: 08:00 [facility] 04/30 07:14 Order name: Labs - recollect needed: recollect Ammonia in short/ dark green tube ss please; Complete Time: 07:49 Administered Medications: 06:50 Drug: NS 0.9% 1000 ml Route: IV; Rate: 1 bolus; Site: right antecubital; aa1 09:00 Follow up: Response: No adverse reaction; IV Status: Completed infusion; IV Intake: hb 1000ml 06:50 Drug: NS 0.9% 1000 ml Route: IV; Rate: 1 bolus; Site: right antecubital; aa1 07:50 Follow up: Response: No adverse reaction; IV Status: Completed infusion; IV Intake: hb 1000ml 06:50 Drug: Zofran 4 mg Route: IVP; Site: right antecubital; aa1 07:30 Follow up: Response: No adverse reaction hb 06:52 Drug: Pepcid 20 mg Route: IVP; Site: right antecubital; aa1 07:30 Follow up: Response: No adverse reaction hb 06:53 Drug: morphine 4 mg Route: IVP; Site: right antecubital; aa1 07:30 Follow up: Response: No adverse reaction hb 07:57 Drug: morphine 4 mg {Note: RASS +1.} Route: IVP; Site: right antecubital; hb 08:30 Follow up: Response: No adverse reaction hb 07:57 Drug: Zofran 4 mg Route: IVP; Site: right antecubital; hb 08:30 Follow up: Response: No adverse reaction hb 10:18 Drug: CarafATE 1 grams Route: PO; hb 10:18 Follow up: Response: Medication administered at discharge. hb 10:18 Drug: Zofran 4 mg Route: IVP; Site: right antecubital; hb 10:18 Follow up: Response: Medication administered at discharge. hb Disposition: 04/30/19 09:22 Discharged to Home. Impression: Unspecified cirrhosis of liver, Type 2 diabetes mellitus, Abdominal tenderness. - Condition is Stable. - Discharge Instructions: Abdominal Pain, Adult, Type 2 Diabetes Mellitus, Diagnosis, Adult, Abdominal Pain, Adult, [id number], Type 2 Diabetes Mellitus, Diagnosis, Adult, [id number]. - Prescriptions for Bentyl 20 mg Oral Tablet - take 1 tablet by ORAL route every 6 hours As needed; 20 tablet. Pepcid 20 mg Oral Tablet - take 1 tablet by ORAL route every 12 hours for 10 days; 20 tablet. Zofran 4 mg Oral Tablet - take 1 tablet by ORAL route every 12 hours As needed; 20 tablet. Carafate 1 gram Oral Tablet - take 1 tablet by ORAL route 4 times per day take on an empty stomach, beginning on waking and last dose at bedtime; 100 tablet. - Medication Reconciliation Form, Thank You Letter, Antibiotic Education, Prescription Opioid Use form. - Follow up: Private Physician; When: 2 - 3 days; Reason: Recheck today's complaints, Continuance of care, Re-evaluation by your physician. Follow up: Dru Bermudez; When: 2 - 3 days; Reason: Recheck today's complaints, Re-evaluation by your physician. - Problem is new. - Symptoms have improved. Signatures: Dispatcher [employer] EDMS Madeline Roman RN RN aa1 Alli Iniguez MD MD cha Therrien, Shelly, SECRETARY TO BOARD OF COMMISSIONERS-C SECRETARY TO BOARD OF COMMISSIONERS-Csnw Miriam Dia RN RN Donya Kerr RN RN hb Corrections: (The following items were deleted from the chart) 10:19 09:22 04/30/2019 09:22 Discharged to Home. Impression: Unspecified cirrhosis of liver; hb Type 2 diabetes mellitus; Abdominal tenderness. Condition is Stable. Discharge Instructions: Abdominal Pain, Adult, Type 2 Diabetes Mellitus, Diagnosis, Adult, Abdominal Pain, Adult, [id number], Type 2 Diabetes Mellitus, Diagnosis, Adult, [id number]. Prescriptions for Bentyl 20 mg Oral Tablet - take 1 tablet by ORAL route every 6 hours As needed; 20 tablet, Pepcid 20 mg Oral Tablet - take 1 tablet by ORAL route every 12 hours for 10 days; 20 tablet, Zofran 4 mg Oral Tablet - take 1 tablet by ORAL route every 12 hours As needed; 20 tablet. and Forms are Medication Reconciliation Form, Thank You Letter, Antibiotic Education, Prescription Opioid Use. Follow up: Private Physician; When: 2 - 3 days; Reason: Recheck today's complaints, Continuance of care, Re-evaluation by your physician. Follow up: Dru Bermudez; When: 2 - 3 days; Reason: Recheck today's complaints, Re-evaluation by your physician. Problem is new. Symptoms have improved. snw
[2019-04-30] MEDS ORDERED: SUCRALFATE 1 GM TABLET ONE (10:10)
[2019-04-30 14:18] VITALS: TEMP 97.7
[2019-04-30 15:01] VITALS: BP 132/88; O2SAT 100
== END 2019-04-30 10:19 | disposition home or self-care (01) ==
LOC: ER 06:17
DX: K74.60 Unspecified cirrhosis of liver (principal); E11.9 Type 2 diabetes mellitus without complications; I10 Essential (primary) hypertension
CPT/HCPCS: 36415; 74177; 80048; 80076; 81003; 82140; 83690; 85025; 87086; 87088; 96361; 96374; 96375; 99284; J2405; J7030; Q9967

== ENCOUNTER 2020-02-18 15:34 | Emergency (ER) | payer BC, SELFPAY ==
--- OUTSIDE RECORDS SUMMARY | 2020-02-18 15:39 | XMS REPORT | Continuity of Care Document ---
:1975 Author Organization [facility] t Address [address] [place] [address] Care Team Providers Name Role Phone Rony Ribeiro Primary Care Physician Nalini Nichols MD Attending Clinician Tanya Goldberg Attending Clinician Humberto Boyce MA Attending Clinician Unavailable Miriam Booth MA Attending Clinician Unavailable Lupe Wei NP Attending Clinician Rony Ribeiro Attending Clinician Lindsay White NP Attending Clinician Carlton Sun Attending Clinician Latoya NICHOLS Attending Clinician Unavailable Myron Gonzales Attending Clinician Latoya NICHOLS Admitting Clinician Unavailable Payers Payer Name Policy Type Policy Number Effective Date Expiration Date S ource BLUE CROSS/BLUE xxxxxxxxxxxx [facility] SHIELDBC[facility] PPO - Medical POS EPO Center CHOICExxxxxxxxxx [id number] [address], [place] [address] Problems Condition Condition Condition Status Onset Resolution Last Treating Co mments Source Name Details Category Date Date Treatment Clinician Date Type II Type II Disease Active [facility] - [facility] - mellitus mellitus 00:00: Medica l 00 Center Abdominal Abdominal Disease Active [facility] pain pain 10-20 [facility] - 00:00: Medical 00 Center Other Other Disease Active 2017-[address] [facility] cirrhosis cirrhosis 1-06 [facility] - of liver of liver 00:00: Medica l 00 Center Steatohepa Steatohepa Disease Active 2017-[address] tiera mott 0- Assessmen Lukathi - 00:00: t & Plan: Medical 00 Patient Center has several risk factors for NAFLD including obesity, Type 2 DM, HTN, HLD diagnosti c of metabolic syndrome. He will need aggressiv e life style modificat ion and treatment of risk factors. We counseled patient to follow low carbohydr ate diet, exercise regularly , and lose weight. Education material provided to patient today.NAF LD is a risk factor to develop cirrhosis which carries high risk for complicat ions and mortality . Cancer Cancer Disease Active 2017-06 Last [facility] t & Plan: Medical 00 Cirrhosis Center , regardles s of etiology, is a risk factor for developme nt of hepatocel lular carcinoma (HCC). The annual incidence of HCC varies from 1.5-7%. Thus, we recommend surveilla nce of HCC every 6 months with MRI and AFP. We will do MRI and AFP today. Indirect Indirect Disease Active 2017-06 [facility] hyperbilir hyperbilir 0- Deana kes - ubinemia ubinemia 00:00: Medica l 00 Center R10.12 - Diagnosis Active 2018-02-28 M emoria LEFT UPPER 02-24 09:20:00 l QUADRANT R10.12 - 00:01: Herm aubrey PAIN LEFT UPPER 00 QUADRANT PAIN Active 02/24/2018 OPID Mannie Abnormal Problem 2018-09-17 Mem oria levels of 12:40:54 l other Abnormal Chip n serum levels of enzymes other serum enzymes 09/17/2018 OPID Mannie Fatty Problem 2018-09-17 Memor ia (change 12:40:54 l of) liver, Fatty Rebecca nn not (change elsewhere of) liver, classified not elsewhere classified 09/17/2018 OPID [place] Hepatic Problem 2018-09-17 Bernabe umair fibrosis 12:40:54 l Hepatic Mannie fibrosis 09/17/2018 OPID Mannie Abnormal Problem 2018-09-17 2018-09-17 Memoria findings 9-20 12:40:54 12:40:54 l on Abnormal 04:59: Chip n diagnostic findings 45 imaging of on other diagnostic parts of imaging of digestive other tract parts of digestive tract 03/06/2018 09/17/2018 EDI Chand Allergies, Adverse Reactions, Alerts This patient has no known allergies or adverse reactions. Family History Family Member Diagnosis Comments Start Date Stop Date Source Natural father Prostatitis [facility] Natural mother Diabetes [facility] Natural mother Heart disease [facility] Social History Social Habit Start Date Stop Date Quantity Comments Source Sex Assigned At [facility] Social History 2018-03-01 2018-03-01 [facility] 04:59:00 04:59:00 Alcohol Comment 2016-11-01 2016-11-[address] [facility] 00:00:00 00:00:00 [facility] Smoking Status Start Date Stop Date Source Never smoker [facility] Medications Ordered Filled Start Stop Current Ordering Indication Dosage Frequency Signature Comments Components Source Medication Medication Date Date Medication? Clinician (SIG) Name Name gabapentin 2018-06 2019- No 300mg Q.5D Take [address] (NEURONTIN) 1-06 11-06 mg by [facility] - 300 MG 09:01: 00:00 mouth 2 Medical capsule 52 :00 (two) Center times daily. venlafaxine 2018-06 2019- No 37.5mg QD Take 37.[address] (EFFEXOR) 1-06 11-06 mg by [facility] - 37.5 MG 09:01: 00:00 mouth Medical tablet 52 :00 nightly. [place] JANUVIA 50 2018-0 2019- No [facility] mg tablet 4-16 11-06 [facility] - 00:00: 00:00 Medical 00 :00 [place] rosuvastati 2017-06 Yes 5mg QD Take [address] n (CRESTOR) 0-01 by mouth Luke [facility] - 5 MG tablet 11:30: daily. [facility] lissy 10 [place] multivitami 2017-06 Yes 1{tbl} QD Take [address] n per 0-01 tablet by [facility] - tablet 11:30: mouth Medical 10 daily. [place] ascorbic 2017-06 Yes 500mg QD Take [address] acid, 0-01 mg by [facility] - vitamin C, 11:30: mouth Medica l (ASCORBIC 10 daily. [place] ACID WITH JORGE HIPS) 500 MG tablet losartan 2017-06 Yes 25mg QD Take [address] (COZAAR) 25 0-01 by mouth Luke [facility] - MG tablet 11:30: daily. Medica l [address] [place] [address] metFORMIN Yes 1000mg Take 1,[address] (GLUMETZA) 5-18 mg by [facility] - 1000 MG 13:24: mouth 2 Medical (MOD) 24 hr 12 (two) [place] tablet times daily with breakfast and dinner. Vital Signs Vital Name Observation Time Observation Value Comments Source Body height 2019-10-26 12:56:00 170.2 cm [facility] Body weight Measured 2019-10-26 12:56:00 89.359 kg [facility] BMI 2019-10-26 12:56:00 30.85 kg/m2 [facility] Systolic blood 2019-04-22 08:56:00 149 mm[Hg] [facility] Diastolic blood 2019-04-22 08:56:00 91 mm[Hg] [facility] Heart rate 2019-04-22 08:56:00 70 /min [facility] Body temperature 2019-04-22 08:56:00 36.72 Valeria [facility] Respiratory rate 2019-04-22 08:56:00 18 /min [facility] Oxygen saturation in 2019-04-22 08:56:00 100 /min [facility] Arterial blood by Medical Ce nter Pulse oximetry Procedures Procedure Date / Time Performed Performing Clinician Jeanie wilkes ALPHA FETOPROTEIN (AFP), 2019-10-24 08:24:[address] [facility] TUMOR MARKER [facility] PROTHROMBIN TIME/INR 2019-10-24 08:24:00 Ora Wei [facility] CBC W/PLT COUNT & AUTO 2019-10-24 08:24:00 Ora Wei [facility] HEPATIC FUNCTION PANEL 2019-10-24 08:24:00 Ora Wei CH, I [facility] US ABDOMEN COMPLETE 2019-10-16 10:25:00 Sylvester Nichols [facility] US ABDOMEN COMPLETE 2019-04-17 11:57:00 Sylvester Nichols [facility] PROTHROMBIN TIME/INR 2019-04-17 09:24:00 Sylvester Nichols [facility] ALPHA FETOPROTEIN (AFP), 2019-04-17 09:24:[address] [facility] TUMOR MARKER [facility] HEPATIC FUNCTION PANEL 2019-04-17 09:24:00 Sylvester Nichols [facility] CBC W/PLT COUNT & AUTO 2019-04-17 09:24:00 Sylvester Nichols [facility] BASIC METABOLIC PANEL 2019-04-17 09:24:[address] [facility] (7) [facility] Plan of Care Planned Activity Planned Date Details Comments Source Future Scheduled 2020-02-16 INFLUENZA VACCINE (#1) [facility] Test 00:00:00 [code = INFLUENZA Medical Ce nter VACCINE (#1)] Future Scheduled 2018-10-[address] [facility] - Test 00:00:00 measurement Medical Center (procedure) [code = 59532129] Future Scheduled [address] [facility] - Test 00:00:00 (procedure) [code = Medical Center 57548074] Future Scheduled [address] DIABETIC EYE EXAM [facility] - Test 00:00:00 [code = DIABETIC EYE Medical Center EXAM] Future Scheduled [address] Amanda es - Test 00:00:00 examination Medical Center (regime/therapy) [code = 923030759] Future Scheduled 1984 Urine screening for [facility] - Test 00:00:00 protein (procedure) Medical Center [code = 883445780] Future Scheduled [address] [facility] - Test 00:00:00 2-64 YEARS AT RISK (1 Medica l Center of 1 - PPSV23) [code = PNEUMOCOCCAL VACCINE 2-64 YEARS AT RISK (1 of 1 - PPSV23)] Encounters Start End Encounter Admission Attending Care Care Encounter Source Date/Time Date/Time Type Type Clinicians Facility Department ID 2018-07-03 2018-07-03 Outpatient DOUGIE Sun [place] [id number] 09:45:00 09:45:00 Mario 00 [place] 2018-07-03 2018-07-03 [facility] [id number] 09:45:00 09:45:00 Mario 00 [place] 2018-05-22 2018-05-23 [facility] [id number] 11:59:00 23:59:59 00 2018-05-22 2018-05-23 [facility] [id number] 11:59:00 23:59:59 00 2018-02-28 2018-02-28 [facility] [id number] 09:11:00 23:59:00 Adonis L 00 2018-02-28 2018-02-28 Outpatient Christian [facility] [id number] 09:11:00 23:59:00 Adonis L 00 Results Test Description Test Time Test Comments Results Result Comments Source Hepatic function panel 2019-10-26 14:34:00 Test Item Value Reference Range Interpretation Comme nts Protein, Total, Serum (test 7.5 g/dL 6.1-8.1 code = 20101022) Albumin (test code = ) 4.6 g/dL 3.6-5.1 GLOBULIN (QUEST) (test code = 2.9 1.9- 3.7 g/dL (calc) ) Albumin Globulin Ratio (test 1.6 1.0- 2.5 (calc) code = 1759-0) Bilirubin, Total (test code = 1.6 mg/dL 0.2-1.2 H 20101024) Bilirubin, Direct (test code = 0.3 mg/dL < OR = 0.2 H 20101105) Bilirubin, Indirect (test code 1.3 0.2- 1.2 mg/dL (calc) H = ) Alkaline Phosphatase, S (test 67 U/L 36-130 code = 6768-6) AST (SGOT) (test code = 20 U/L 10-40 20101028) ALT (SGPT) (test code = 19 U/L 9-46 ) SAMI (test code = SAMI) FASTING:YESMULTIPLE COLLECTION TIMES FOR SAME TEST TYPE.FASTING: YES RAC (test code = RAC) Performing Organization Information: Site ID: RGA Name: [facility] Address: [address] [place] [phone] Director: Juan F Ruiz Lab Interpretation (test code = Abnormal 32389-9) [facility] with platelet count + automated [id number] 14:34:00 Test Item Value Reference Range Interpretation Comments WBC (test code = 6.4 3.8- 10.8 ) Thousand/uL RBC (test code = 5.51 4.20- 5.80 789-8) Million/uL Hemoglobin (test 16.7 g/dL 13.2-17.1 code = ) Hematocrit (test 49.4 % 38.5-50 code = ) MCV (test code = 89.7 fL 80-591 4084765) MCH (test code = 30.3 pg 27-33 ) MCHC (test code = 33.8 g/dL 32-36 ) RDW (test code = 13.5 % 11-15 ) Platelets (test code 241 140- 400 = ) Thousand/uL MPV (test code = 10.5 fL 7.5-12.5 7090643) # Neutros (test code 4205 1,500 - 7,800 = 20200110) cells/uL # Lymphs (test code 1683 850- 3,900 cells/uL = 731-0) # Monos (test code = 301 200- 950 cells/uL ) # Eos (test code = 179 15- 500 cells/uL 711-2) # Baso (test code = 32 0- 200 cells/uL 704-7) % Neutros (test code 65.7 % = ) % Lymphs (test code 26.3 % = 20200107) % Monos (test code = 4.7 % ) % Eos (test code = 2.8 % 20200105) % Baso (test code = 0.5 % 20200106) SAMI (test code = FASTING:YESMULTIPLE SAMI) COLLECTION TIMES FOR SAME TEST TYPE.FASTING: YES RAC (test code = Performing RAC) Organization Information: Site ID: RGA Name: [facility] Address: [address] [place] [phone] Director: Juan F Ruiz [facility]/[id number] 14:34:00 Test Item Value Reference Range Interpretation Comments INR (test 1.0 Reference Range code = 6747322) 0.9-1.1Moderate -inte nsity Warfarin Therapy 2.0-3.0Higher-i ntens ity Warfarin Th erapy 3.0-4.0 PT (test code 10.2 9.0- 11.5 sec For more = 9043497) information on this test, go to:http://[employer] /faq/GHC907 SAMI (test FASTING:YESMULTIPLE code = SAMI) COLLECTION TIMES FOR SAME TEST TYPE.FASTING: YES RAC (test Performing code = RAC) Organization Information: Site ID: RGA Name: [facility] Address: [address] [place] [address] Director: Juan F Ruiz [facility] Hospital[facility] fetoprotein (AFP), tumor [id number] 14:34:00 Test Item Value Reference Interpretation Comments Range Alpha-Feto 3.1 ng/mL <6.1 This test was performed protein using the Beckm an (test code Coulterchemilum inescent = 1834-1) method. Values obtained fromdifferent a ssay methods cannot be usedinterchange ably. AFP levels, regardl ess ofvalue, should not be i nterpreted as absoluteevidenc e of the presence or abs ence of disease. SAMI (test FASTING:YESMULTIPL code = E COLLECTION TIMES SAMI) FOR SAME TEST TYPE.FASTING: YES RAC (test Performing code = Organization RAC) Information: Site ID: IG Name: [facility] Address: [address] [place] [address] Director: Dr. Juan F Ruiz [facility] HospitalU/S, ABDOMINAL, [id number] 11:39:00 REFERRING MD: ADONIS Lombardo for Exam:->cirrhosis, fatty liver, abnormal liver imaging, screen for liver cancerFINAL REPORT Abdominal ultrasound dated 10/16/2019 HISTORY: Cirrhosis, fatty liver COMPARISON: Abdominal ultrasound dated 04/17/2019 Findings: Liver is slightly increased in echogenicity. The liver measures 15.6 cm in length. No focal lesion is noted in the liver. Spleen is normal in size, 9.1 cm in length, without focal abnormality. Gallbladder has been removed. No biliary dilatation seen. Common bile duct measures 4.5 mm in diameter. Main portal vein measures 0.9 cm in lila meter. Pancreas is obscured by bowel gas. Right kidney measures 11.9 x 5.3 x 6.1 cm. Left kidney measures 11.8 x 6.6 x 5.2 cm. Echogenicity of both kidneys is normal. No hydronephrosis, solid/cystic mass, or calculus seen. No ascites is present in the abdomen. Abdominal aorta is normal in caliber. IVC and hepatic veins are patent. Impression: 1. Mild fatty infiltration of the liver.2. Status post cholecystectomy. Signed: Josie Hanson MDReport Verified Date/Time: 10/16/2019 11:39:27 Reading Location: [address] Reading Room US abdomen [id number] 11:39:00Interface, External Ris In - 10/16/2019 11:41 AM CDTFINAL REPORT Abdominal ultrasound dated 10/16/2019 HISTORY: Cirrhosis, fatty liver COMPARISON: Abdominal ultrasound dated 04/17/2019 Findings: Liver is slightly increased in echogenicity. The liver measures 15.6 cm in length. No focal lesion is noted in the liver. Spleen is normal in size, 9.1 cm in length, without focal abnormality. Gallbladder has been removed. No biliary dilatation seen. Common bile duct measures 4.5 mm in diameter. Main portal vein measures 0.9 cm in diameter. Pancreas is obscured by bowel gas. Right kidney measures 11.9 x 5.3 x 6.1 cm. Left kidney measures 11.8 x 6.6 x 5.2 cm. Echogenicity of both kidneys is normal. No hydronephrosis, solid/cystic mass, or calculus seen. No ascites is presentin the abdomen. Abdominal aorta is normal in caliber. IVC and hepatic veins are patent. Impression: 1. Mild fatty infiltration of the liver.2. Status post cholecystectomy. Signed: Josie Hanson MDReport Verified Date/Time: 10/16/2019 11:39:27 Reading Location: [facility] C0[facility] Transitional Reading Room [facility] CenterBasi Metabolic [id number] 13:30:00 Test Item Value Reference Range Interpretation Comments Glucose (test code = 147 mg/dL 65-99 H ) Fasting referen ce interval For someone without known diabetes, a glucosevalue >1 25 mg/dL indicates that they may havediabetes an d this should be confirmed with afollow-up test . BUN (test code = 12 mg/dL 7-20101018) Creatinine (test 0.82 mg/dL 0.6-1.35 code = 20130810) eGFR If NonAfricn Am 108 > OR = 60 (test code = mL/min/1.73m2 ) eGFR If Africn Am 125 > OR = 60 (test code = mL/min/1.73m2 ) BUN/Creatinine Ratio NOT APPLICABLE 6- 22 (calc) (test code = ) Sodium (test code = 141 mmol/L 135-018 7856529) Potassium, Serum 4.0 mmol/L 3.5-5.3 (test code = 8974751) Chloride (test code 103 mmol/L 98-110 = 0017995) Carbon Dioxide, 29 mmol/L 20-32 Total (test code = ) Calcium, Serum (test 9.4 mg/dL 8.6-10.3 code = 9638782) SAMI (test code = FASTING:YESFASTING SAMI) : YES RAC (test code = Performing RAC) Organization Information: Site ID: RGA Name: [facility] Lab Address: [address] [place] [phone] Director: Juan F Ruiz Lab Interpretation Abnormal (test code = 19554-1) [facility]/S, ABDOMINAL, [id number] 12:01:00 REFERRING MD: ADONIS Lombardo for Exam:->cirrhosis, screening for cancer FINAL REPORT History: Cirrhosis, screening for malignancy. Findings: Correlation is made with patient's previous study performed October 20, 2018. Real-time sonographic examinationof the abdomen reveals a relatively small diffusely echogenic and coarsened liver measuring up to 13.4 cm in length. No focal hepatic abnormalities or masses are identified. The gallbladder is absent, consistent with prior cholecystectomy. No intra or extrahepatic biliary ductal dilatation is present.The common bile duct measures up to 4 mm in diameter. The portal vein measures 12 mm in diameter andappears patent by Limited color Doppler examination. The spleen is normal size and echogenicity measuring up to 11.2 cm in length. No focal splenic abnormalities. Right and left kidneys are normal sizeand echogenicity measuring up to 11.4 and 12.4 [...] or abnormalities are identified. 2. Status post cholecystectomy.No acute biliary abnormalities. 3. Incomplete evaluation the pancreas secondary to overlying bowel gas. Signed: Rony Blum MDReport Verified Date/Time: 04/17/2019 12:01:59 Reading Location: [address] Radiology Reading Room U/S, ABDOMINAL, [id number] 10:52:00REFROHITH VILLELA: ADONIS Marie September 2018Reason for Exam:->cirrhosisFINAL REPORT TECHNIQUE: Grayscale ultrasound of the abdomen. INDICATION: 2-year-old man with cirrhosis. COMPARISON: Abdomen MRI 03/26/2018. FINDINGS: MIDLINE VASCULATURE: The visualized inferior vena cava is patent. Portal vein is patent and measures 1.1 cm in diameter. The maximum visualized aortic diameter is 2.1 cm. LIVER: The liver is normal in size. Increased echogenicityof the liver, consistent with hepatic steatosis. No focal lesions. BILIARY:Gallbladder: Prior cholecystectomy.Common bile duct measures 0.6 cm, within normal limits. No intrahepatic biliary ductal dilatation. PANCREAS: Visualized portions of the pancreas are unremarkable. SPLEEN: No splenomegaly. PERITONEUM: No free fluid. KIDNEYS: Both kidneys are normal in size. No hydronephrosis. No sonographically evident solid mass lesion. IMPRESSION:Hepatic steatosis. No focal liver lesion. Signed: Gabo Ball MDReport Verified Date/Time: 10/20/2018 10:52:16 Reading Location: [address] Radiology Reading Room TISSUE [id number] 08:51:00Surgical Pathology Report Case: [id number] Authorizing Provider: Sylvester Nichols MD Collected: Ordering Location: [facility] 6 OP Received: 03/28/2018 1419 Pathologist: Samantha White MD Specimen: Biopsy, Liver LIVER, TRANSJUGULAR RANDOM NEEDLE CORE BIOPSY: - STEATOHEPATITIS, STAGE 4 FIBROSIS (CIRRHOSIS) - MILD MACRO STEATOSIS - MILD LOBULAR INFLAMMATION - BALLOONED HEPATOCYTES PRESENT Signing Pathologist Direct Phone Line: [phone] signed by Samantha White MD on 04/03/2018 [...] inflammation, grade 1 + hepatocyte ballooning score 2 = 4/8. The fibrosisscore is 4 of 4SJ/[id number] of liver. Transjugular liver biopsy Specimen is [...] formation suggestive of stage 4 fibrosis (cirrhosis). PAS-Dstain is negative for alpha-1 antitrypsin globules. Iron stain show focally increased iron (1+) withfew hepatocytes . Reticulin stain shows areas of regeneration.OSCAR, TRANSCATHETER [id number] 09:56:00FINAL REPORT Transjugular liver biopsy. History: Cirrhosis. Modality: Ultrasound and fluoroscopy. Sedation: Moderate sedation was administered. 2 mg of Versed and 100 mcg of fentanyl IV was used for moderate sedation monitored under mydirection. Total intra-service time of sedation was 30 minutes. The patient's vital signs were monitored throughout the procedure and recorded in the patient's medical record by the nurse. Truss Assembler: Jovanni Phan MD. Barrel Inspector Tight: Jacobo Longoria (fellow). Delfina Beard (resident). Approach: [...] was performed prior to starting the procedure. Allelements maximal sterile barrier technique was utilized for this procedure, including utilization ofsterile scrub solution for skin prep, a large sterile sheet to cover the areas of the patient that were not prepped, and hand hygiene, mask, head covering, and sterile gown for performing radiologist and scrub technologist. Ultrasound evaluation showed a patent and compressible right internal jugularvein, which was punctured under direct real-time ultrasound guidance with a micropuncture needle. An ultrasound image was saved to PACS. A 0.018 inch wire was placed through the needle into the right atrium. A 4 Croatian micropuncture sheath was placed. A 0.035 inch J-wire was placed through the micropuncture sheath and the sheath was exchanged for a 9 Croatian sheath. A 5 Croatian angled tip catheter was used to select the right hepatic vein. Venogram was performed. Pressures were obtained through the catheter with measurements as follows: wedged hepatic - 9 mmHg, free hepatic - 7, and right atrium -5. A long metal reinforced 7 Croatian sheath was placed through the 9 Croatian sheath into the right hepatic vein. A [...] conscious sedation. HVPG 2 mmHg. Signed: Jovanni Phanort Verified Date/Time: 03/28/2018 09:56:20 Reading Location: [place] [address] Angio Body Reading Room REHENSIVE METABOLIC [id number] 06:46:00 Test Item Value Reference Range Interpretation Comments TOTAL PROTEIN 7.1 gm/dL 6.0-8.3 (BEAKER) (test code = 770) ALBUMIN (BEAKER) 4.1 g/dL 3.5-5.0 (test code = 1145) ALKALINE PHOSPHATASE 77 U/L 40-150 (BEAKER) (test code = 346) BILIRUBIN TOTAL 1.6 mg/dL 0.2-1.2 H (BEAKER) (test code = 377) SODIUM (BEAKER) (test 142 meq/L 136-145 code = 381) POTASSIUM (BEAKER) 3.7 meq/L 3.5-5.1 (test code = 379) CHLORIDE (BEAKER) 108 meq/L 98-107 H (test code = 382) CO2 (BEAKER) (test 25 meq/L 22-29 code = 355) BLOOD UREA NITROGEN 7 mg/dL 7-21 (BEAKER) (test code = 354) CREATININE (BEAKER) 0.77 mg/dL 0.57-1.25 (test code = 358) GLUCOSE RANDOM 137 mg/dL 70-105 H (BEAKER) (test code = 652) CALCIUM (BEAKER) 8.9 mg/dL 8.4-10.2 (test code = 697) AST (SGOT) (BEAKER) 41 U/L 5-34 H (test code = 353) ALT (SGPT) (BEAKER) 68 U/L 6-55 H (test code = 347) EGFR (BEAKER) (test 110 ESTIMATE D GFR IS code = 1092) mL/min/1.73 sq NOT ACCURA TE m CREATININE CLEARANCE IN PREDICTING GLOMERULAR FILTRATION RATE . ESTIMATED GFR I S NOT APPLICABLE FOR DIALYSIS PATIEN TS. PT/[id number] 06:39:00 Test Item Value Reference Range Interpretation Comments PROTIME (BEAKER) (test code = 15.0 seconds 11.7-14.7 H 759) INR (BEAKER) (test code = 370) 1.2 <=5.9 PARTIAL THROMBOPLASTIN TIME 30.7 seconds 22.5-36.0 (BEAKER) (test code = 760) RECOMMENDED COUMADIN/WARFARIN INR THERAPY RANGESSTANDARD DOSE: 2.0 - 3.0 Includes: PROPHYLAXIS forvenous thrombosis, systemic embolization; TREATMENT for venous thrombosis and/or pulmonary embolus.HIGH RISK: Target INR is 2.5-3.5 for patients with mechanical heart valves.PLATELET [id number] 06:29:00 Test Item Value Reference Range Interpretation Comments PLATELET COUNT (BEAKER) (test 183 K/CU MM 150-450 code = 756) MR, ABDOMEN, [id number] 11:11:00REFERRING MD: ADONIS PHIPPS REPORT TECHNIQUE: MRI of the abdomen WITHOUT and WITH intravenous contrast. INDICATION: 42-year-old man with portal hypertension and cirrhosis. COMPARISON: Abdomen and pelvis CT 11/01/2016. FINDINGS: LOWER THORAX: Unremarkable. LIVER: No overt cirrhosis or hepatic [...] caliber, measuring 1.2 cm in diameter. GI TRACT: No distention or wall thickening. BONES AND SOFT TISSUES: Unremarkable. IMPRESSION:No overt cirrhosis or hepatic steatosis. No focal liver lesions. Splenomegaly. Signed: Gabo Ball MDReport Verified Date/Time: 03/26/2018 11:11:24 Reading Location: [facility] [id number] CT Body Reading Room URINALYSIS W/ [id number] 14:50:00 Test Item Value Reference Range Interpretation Comments COLOR (BEAKER) (test code Light Yellow = 470) CLARITY (BEAKER) (test Clear code = 469) SPECIFIC GRAVITY UA 1.001 1.001-1.035 (BEAKER) (test code = 468) PH UA (BEAKER) (test code 5.0 5.0-8.0 = 467) PROTEIN UA (BEAKER) (test Negative Negative code = 464) GLUCOSE UA (BEAKER) (test 1000 mg/dL Negative A code = 365) KETONES UA (BEAKER) (test Negative Negative code = 371) BILIRUBIN UA (BEAKER) Negative Negative (test code = 462) BLOOD UA (BEAKER) (test Negative Negative code = 461) NITRITE UA (BEAKER) (test Negative Negative code = 465) LEUKOCYTE ESTERASE UA Negative Negative (BEAKER) (test code = 466) UROBILINOGEN UA (BEAKER) 0.2 mg/dL 0.2-1.0 (test code = 463) RBC UA (BEAKER) (test code 0 /HPF = 519) WBC UA (BEAKER) (test code 0 /HPF = 520) SOURCE(BEAKER) (test code Urine, Clean Catch = 9329) BASIC METABOLIC [id number] 14:23:00 Test Item Value Reference Range Interpretation Comments SODIUM (BEAKER) 137 meq/L 136-145 (test code = 381) POTASSIUM (BEAKER) 3.9 meq/L 3.5-5.1 (test code = 379) CHLORIDE (BEAKER) 107 meq/L 98-107 (test code = 382) CO2 (BEAKER) (test 23 meq/L 22-29 code = 355) BLOOD UREA NITROGEN 10 mg/dL 7-21 (BEAKER) (test code = 354) CREATININE (BEAKER) 0.85 mg/dL 0.57-1.25 (test code = 358) GLUCOSE RANDOM 85 mg/dL 70-105 (BEAKER) (test code = 652) CALCIUM (BEAKER) 9.0 mg/dL 8.4-10.2 (test code = 697) EGFR (BEAKER) (test mL/min/1.73 INSUFFIC IENT CLINICAL code = 1092) sq m DATA TO CALCULA TE ESTIMATED GFR. [id number] 14:20:00 Test Item Value Reference Range Interpretation Comments LIPASE (BEAKER) (test code = 749) 71 U/L 8-78 [id number] 14:20:00 Test Item Value Reference Range Interpretation Comments AMYLASE (BEAKER) (test code = 349) 75 U/L 25-125 HEPATIC FUNCTION [id number] 14:20:00 Test Item Value Reference Range Interpretation Comments TOTAL PROTEIN (BEAKER) (test code = 7.4 gm/dL 6.0-8.3 770) ALBUMIN (BEAKER) (test code = 1145) 4.2 g/dL 3.5-5.0 BILIRUBIN TOTAL (BEAKER) (test code 1.7 mg/dL 0.2-1.2 H = 377) BILIRUBIN DIRECT (BEAKER) (test 0.5 mg/dL 0.1-0.5 code = 706) ALKALINE PHOSPHATASE (BEAKER) (test 54 U/L 40-150 code = 346) AST (SGOT) (BEAKER) (test code = 31 U/L 5-34 353) ALT (SGPT) (BEAKER) (test code = 42 U/L 6-55 347) CBC W/PLT COUNT & AUTO [id number] 14:06:00 Test Item Value Reference Range Interpretation Comments WHITE BLOOD CELL COUNT (BEAKER) 6.7 K/ L 4.0-10.0 (test code = 775) RED BLOOD CELL COUNT (BEAKER) 5.15 M/ L 4.20-5.80 (test code = 761) HEMOGLOBIN (BEAKER) (test code = 16.1 GM/DL 13.0-16.8 410) HEMATOCRIT (BEAKER) (test code = 45.5 % 40.0-50.0 411) MEAN CORPUSCULAR VOLUME (BEAKER) 88.4 fL 82.0-98.0 (test code = 753) MEAN CORPUSCULAR HEMOGLOBIN 31.3 pg 27.0-33.0 (BEAKER) (test code = 751) MEAN CORPUSCULAR HEMOGLOBIN CONC 35.5 GM/DL 32.0-36.0 (BEAKER) (test code = 752) RED CELL DISTRIBUTION WIDTH 13.0 % 10.3-14.2 (BEAKER) (test code = 412) PLATELET COUNT (BEAKER) (test 197 K/CU MM 150-430 code = 756) MEAN PLATELET VOLUME (BEAKER) 7.5 fL 6.5-10.5 (test code = 754) NUCLEATED RED BLOOD CELLS 0 /100 WBC 0-0 (BEAKER) (test code = 413) NEUTROPHILS RELATIVE PERCENT 59 % (BEAKER) (test code = 429) LYMPHOCYTES RELATIVE PERCENT 34 % (BEAKER) (test code = 430) MONOCYTES RELATIVE PERCENT 5 % (BEAKER) (test code = 431) EOSINOPHILS RELATIVE PERCENT 1 % (BEAKER) (test code = 432) BASOPHILS RELATIVE PERCENT 1 % (BEAKER) (test code = 437) NEUTROPHILS ABSOLUTE COUNT 3.98 K/ L 1.80-8.00 (BEAKER) (test code = 670) LYMPHOCYTES ABSOLUTE COUNT 2.26 K/ L 1.48-4.50 (BEAKER) (test code = 414) MONOCYTES ABSOLUTE COUNT (BEAKER) 0.33 K/ L 0.00-1.30 (test code = 415) EOSINOPHILS ABSOLUTE COUNT 0.09 K/ L 0.00-0.50 (BEAKER) (test code = 416) BASOPHILS ABSOLUTE COUNT (BEAKER) 0.07 K/ L 0.00-0.20 (test code = 417) 0.00
--- OUTSIDE RECORDS SUMMARY | 2020-02-18 15:39 | XMS REPORT | Continuity of Care Document ---
:1975 Author Organization [facility] Care Team Providers Name Role Phone [facility] Unavailable Un available Problems Problem Status Onset Classification Date Comments Sourc e Date Reported Abnormal 09/17/2018 [facility] findings on 8 Mannie diagnostic imaging of other parts of digestive tract R10.12 - LEFT Active OPI D UPPER QUADRANT 8 Rebecca nn PAIN Abnormal 09/17/2018 [facility] levels of Mannie other serum enzymes Fatty (change 09/17/2018 OP ID of) liver, not Rebecca nn elsewhere classified Hepatic 09/17/2018 [facility] fibrosis [place] Medications No Data Provided for This Section Allergies, Adverse Reactions, Alerts No Known Medication Allergies Immunizations No Data Provided for This Section Results No Data Provided for This Section Pathology Reports No Data Provided for This Section Diagnostic Reports Report Value Date Source Elastography US EXAM: US ABDOMEN RUQ Limited 02/28/2018 [facility] Mannie EXAM: US ELASTOGRAPHY DATE: 02/28/2018 9:39 AM CDT INDICATION: R10.12 Left up per quadrant pain - R10.12 Left upper quadrant pain ADDITIONAL INFORMATION: None. COMPARISON: None. TECHNIQUE: Multiplanar mina jovita and color Doppler ultrasound of the abdomen. Multi focal sampling of the liver with elastography was done. FINDINGS: Abdominal aorta and IVC: Visible portions are unremarkable. Liver: Craniocaudal length: 15.2 cm. Echogenicity: Moderate diffuse increased coarsen ed echotexture. Surface nodularity: No nodularity seen. Mass (size and location): None. Portal vein: 1.0 cm Appropri ate directional flow. Nonphasic low level velocity waveforms Bile ducts: Common bile duct diameter: 0.4 cm. Intrahepatic ducts: Normal. Pancreas: The body is obscured.. The head and tail are o bscured. Gallbladder: Surgically removed. Spleen: Craniocaudal length: 10.1 cm. Mass or focal lesion (size and location): None . Ascites: None. Elastography: Ten samples fr om the liver were obtained. The average liver stiffness is 23.7 kPa with a standard deviation of 1.3 kPa. Metavir Score F0 = 2 - 4.5 kPa Normal F0-F1 = 4.5 - 5.7 kPa Normal-Mild F2-F3 = 5.7 - 12 kPa Mild-Moderate F3-F4 = 12 - 21 kPa Moderate-Severe F4 = > 21 kPa Severe IMPRESSION: 1. Moderate diffuse hepatic steatosis with coarsened echotexture with no focal lesions seen. 2. By the Metavir score, liver fibrosis is abdoul re.. Liver US EXAM: US ABDOMEN RUQ Limited 02/28/2018 JAS Chand EXAM: US ELASTOGRAPHY DATE: 02/28/2018 9:39 AM CDT INDICATION: R10.12 Left up per quadrant pain - R10.12 Left upper quadrant pain ADDITIONAL INFORMATION: None. COMPARISON: None. TECHNIQUE: Multiplanar mina jovita and color Doppler ultrasound of the abdomen. Multi focal sampling of the liver with elastography was done. FINDINGS: Abdominal aorta and IVC: Visible portions are unremarkable. Liver: Craniocaudal length: 15.2 cm. Echogenicity: Moderate diffuse increased coarsen ed echotexture. Surface nodularity: No nodularity seen. Mass (size and location): None. Portal vein: 1.0 cm Appropri ate directional flow. Nonphasic low level velocity waveforms Bile ducts: Common bile duct diameter: 0.4 cm. Intrahepatic ducts: Normal. Pancreas: The body is obscured.. The head and tail are o bscured. Gallbladder: Surgically removed. Spleen: Craniocaudal length: 10.1 cm. Mass or focal lesion (size and location): None . Ascites: None. Elastography: Ten samples fr om the liver were obtained. The average liver stiffness is 23.7 kPa with a standard deviation of 1.3 kPa. Metavir Score F0 = 2 - 4.5 kPa Normal F0-F1 = 4.5 - 5.7 kPa Normal-Mild F2-F3 = 5.7 - 12 kPa Mild-Moderate F3-F4 = 12 - 21 kPa Moderate-Severe F4 = > 21 kPa Severe IMPRESSION: 1. Moderate diffuse hepatic steatosis with coarsened echotexture with no focal lesions seen. 2. By the Metavir score, liver fibrosis is abdoul re.. Consultation Notes No Data Provided for This Section Discharge Summaries No Data Provided for This Section History and Physicals No Data Provided for This Section Vital Signs No Data Provided for This Section Encounters Location Location Encounter Encounter Reason Attending ADM DC Stat us Source Details Type Number For Provider Date Date Visit [facility] Diag [id number] Adonis 02/28 03/01 [facility] Christian /2017 [facility] [place] [facility] Phone [id number] 05/22 05/24 [facility] Message /2017 [facility] [id number] Mario 07/03 07/03 [facility]2018 [facility] Procedures No Data Provided for This Section Assessment and Plan No Data Provided for This Section Plan of Care No Data Provided for This Section Social History Social History Date Source No data available for this 07/03/2018 [facility] section No data available for this 03/01/2018 [facility] Rebecca nn section Family History No Data Provided for This Section Advance Directives No Data Provided for This Section Functional Status No Data Provided for This Section
--- OUTSIDE RECORDS SUMMARY | 2020-02-18 15:39 | XMS REPORT | Clinical Summary ---
:1975 Author Organization [facility] Address [address] [place] [address] Care Team Providers Name Role Phone Ilya Ribeiro Primary Care Provider Allergies No Known Allergies Medications Medication Sig Dispensed Refills Start Date End Date Status metFORMIN Take 1,000 mg 0 Active (GLUMETZA) 1000 MG by mouth 2 (MOD) 24 hr tablet (two) times daily with breakfast and dinner. losartan (COZAAR) Take 25 mg by 0 Active 25 MG tablet mouth daily. rosuvastatin Take 5 mg by 0 Acti ve (CRESTOR) 5 MG mouth daily. tablet multivitamin per Take 1 tablet 0 Active tablet by mouth daily. ascorbic acid, Take 500 mg by 0 Active vitamin C, mouth daily. (ASCORBIC ACID WITH JORGE HIPS) 500 MG tablet gabapentin Take 300 mg by 0 04/22/2019 Dis continued (NEURONTIN) 300 MG mouth 2 (two) capsule times daily. venlafaxine Take 37.5 mg by 0 04/22/2019 D iscontinued (EFFEXOR) 37.5 MG mouth nightly. tablet JANUVIA 50 mg 0 09/30/2018 04/22/2019 Disc ontinued tablet Active Problems Problem Noted Date Type II diabetes mellitus 10/20/2018 Abdominal pain 10/20/2018 Other cirrhosis of liver 04/22/2018 Steatohepatitis 03/17/2018 Last Assessment & Plan: Patient has several risk factors for NAFLD including obesity, Type 2 DM, HTN, HLD diagnostic of metabolic syndrome. He will need aggressive life style modification and treatment of risk factors. We counseled patient to follow low carbo hydrate diet, exercise regularly, and lose weight. Education material provided to patient today. NAFLD is a risk factor to develop cirrho sis which carries high risk for complications and mortality. 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) 10/25/2019 Travel 10/23/2019 Telephone Hepatology Elsi Boyce Appointmen t H, YELENA 10/23/2019 Telephone Hepatology Elis Boyce Appointmen t H, YELENA 10/21/2019 Telephone Hepatology Miriam Booth, LAB ORDERS Nathalia, YELENA 10/19/2019 Orders Only Hepatology Ora Wei, Other ci rrhosis of liver (Primary Dx); TELESALES ADVISOR Cancer screenin g 10/16/2019 Hospital Encounter Radiology Sylvester Low, Ab normal liver MD diagnostic imag ing 10/16/2019 Telephone Hepatology Miriam Booth, LAB ORDERS Nathalia, YELENA 10/16/2019 Telephone Hepatology Nathalia Lanza, YELENA 10/16/2019 Outside Orders Shakir Ribeiro 10/15/2019 Travel 04/22/2019 Office Visit Hepatology Sylvester Low, Other ci rrhosis of liver (Primary Dx); Abnormal liver diagnostic imaging; Ora Wei, Cancer s creening; TELESALES ADVISOR Steatohepatitis ; Type 2 diabetes mellitus with other specified complication, without long- term current use of insulin (HCC); Immunity status testing; Indirect hyperb ilirubinemia; Abdominal pain, unspecified abdominal location 04/21/2019 Travel 04/17/2019 Hospital Encounter Radiology Sylvester Low, Ot her cirrhosis of MD liver 04/14/2019 Orders Only Hepatology Milton White Other cirrhosis of [place], TELESALES ADVISOR liver 04/09/2019 Orders Only Hepatology White[place]ilton Other cirrhosis of [place], TELESALES ADVISOR liver (Primary Dx) after 02/17/2019 Family History Medical History Relation Name Comments Prostatitis Father Diabetes Mother Heart disease Mother Relation Name Status Comments Father Alive Mother Alive Social History Tobacco Use Types Packs/Day Years Used Date Never Smoker Smokeless Tobacco: Never Used Alcohol Use Drinks/Week oz/Week Comments No sober 4 years Sex Assigned at Date Recorded Male 04/17/2018 6:57 AM CDT Job Start Date Occupation Industry Not on file Not on file Not on file Travel History Travel Start Travel End No recent travel history available. Last Filed Vital Signs Vital Sign Reading Time Taken Blood Pressure 149/91 04/22/2019 8:56 AM BONDED STRUCTURES REPAIRER Pulse 70 04/22/2019 8:56 AM BONDED STRUCTURES REPAIRER Temperature 36.7 C (98.1 F) 04/22/2019 8:56 AM BONDED STRUCTURES REPAIRER Respiratory Rate 18 04/22/2019 8:56 AM BONDED STRUCTURES REPAIRER Oxygen Saturation 100% 04/22/2019 8:56 AM BONDED STRUCTURES REPAIRER Inhaled Oxygen Concentration - - Weight 89.4 kg (197 lb) 10/26/2019 12:56 PM CDT Height 170.2 cm (5' 7") 10/26/2019 12:56 PM CDT Body Mass Index 30.85 10/26/2019 12:56 PM CDT Plan of Treatment Health Maintenance Due Date Last Done Comments PNEUMOCOCCAL VACCINE 2-64 YEARS AT RISK (1 of 1 - 1980 PPSV23) DIABETIC EYE EXAM 1984 DIABETIC FOOT EXAM 1984 URINE MICROALBUMIN 1984 LIPID PANEL 2009 HEMOGLOBIN A1C 10/20/2018 INFLUENZA VACCINE (#1) 2020 Procedures Procedure Name Priority Date/Time Associated Comments Diagnosis HEPATIC FUNCTION Routine 10/24/2019 8:24 Other cirrhosis of R esults for this PANEL AM CDT liver procedure are i n the results section. CBC W/PLT COUNT & Routine 10/24/2019 8:24 Other cirrhosis of Results for this AUTO DIFFERENTIAL AM CDT liver procedure are in the results section. PROTHROMBIN TIME/INR Routine 10/24/2019 8:24 Other cirrhosis of Results for this AM CDT liver procedure are i n the results section. ALPHA FETOPROTEIN Routine 10/24/2019 8:24 Cancer screening Re sults for this (AFP), TUMOR MARKER AM CDT procedur e are in the results section. US ABDOMEN COMPLETE Routine 10/16/2019 10:25 Abnormal liver Re sults for this AM CDT diagnostic imaging procedure are in the results section. US ABDOMEN COMPLETE Routine 04/17/2019 11:57 Other cirrhosis o f Results for this AM CDT liver procedure are i n the results section. BASIC METABOLIC PANEL Routine 04/17/2019 9:24 Other cirrhosis of Results for this (7) AM CDT liver procedure are i n the results section. CBC W/PLT COUNT & Routine 04/17/2019 9:24 Other cirrhosis of Results for this AUTO DIFFERENTIAL AM CDT liver procedure are in the results section. HEPATIC FUNCTION Routine 04/17/2019 9:24 Other cirrhosis of R esults for this PANEL AM CDT liver procedure are i n the results section. ALPHA FETOPROTEIN Routine 04/17/2019 9:24 Other cirrhosis of Results for this (AFP), TUMOR MARKER AM CDT liver procedur e are in the results section. PROTHROMBIN TIME/INR Routine 04/17/2019 9:24 Other cirrhosis of Results for this AM CDT liver procedure are i n the results section. after 02/17/2019 Results Alpha fetoprotein (AFP), tumor marker (10/24/2019 8:24 AM CDT)Only the most recent of2 resultswithin the time period is included. Alpha-Fetoprotein 3.1 <6.1 ng/mL [facility] Comment: This test was performed using the Britt Coulte r chemiluminescent method. Values obtained from different assay methods cannot be used interchangeably. AFP levels, regardless of value, should not be interpreted as absolute evidence of the presence or absence of disease. Specimen Blood Narrative Performed At FASTING:YES [facility] MULTIPLE COLLECTION TIMES FOR SAME TEST TYPE. FASTING: YES Resulting Agency Comment Performing Organization Information: Site ID: [id number] Name: [facility] Address: [address] [place] [address] Director: Dr. Juan F white Performing Organization Address City/State/Zipcode Phone Number [facility] [address] [place] [address] [facility] Pro-time/INR (10/24/2019 8:24 AM CDT)Only the most recent of2 resultswithin the time period is included. INR 1.0 [facility] Comment: Reference Range 0.9-1.1 Moderate-intensity Warfarin Therapy 2.0-3.0 Higher-intensity Warfarin Therapy 3.0-4.0 PT 10.2 9.0 - 11.5 sec [facility] Comment: For more information on this test, go to: http://education.[employer]/faq/DHZ103 Specimen Blood Narrative Performed At FASTING:YES [facility] MULTIPLE COLLECTION TIMES FOR SAME TEST TYPE. FASTING: YES Resulting Agency Comment Performing Organization Information: Site ID: [id number] Name: [facility] Address: [address] [place] [phone] Director: Juan F Ruiz Performing Organization Address City/State/Zipcode Phone Number [facility] [address] [place] [address] [facility] CBC with platelet count + automated diff (10/24/2019 8:24 AM CDT)Only the most recent of2 resultswithin the time period is included. WBC 6.4 3.8 - 10.8 Thousand/uL [facility] RBC 5.51 4.20 - 5.80 Million/uL [facility] Hemoglobin 16.7 13.2 - 17.1 g/dL [facility] Hematocrit 49.4 38.5 - 50.0 % [facility] MCV 89.7 80.0 - 100.0 fL [facility] MCH 30.3 27.0 - 33.0 pg [facility] MCHC 33.8 32.0 - 36.0 g/dL [facility] RDW 13.5 11.0 - 15.0 % [facility] Platelets 241 140 - 400 Thousand/uL [facility] MPV 10.5 7.5 - 12.5 fL [facility] # Neutros 4,205 1,500 - 7,800 cells/uL [facility] # Lymphs 1,683 850 - 3,900 cells/uL [facility] # Monos 301 200 - 950 cells/uL [facility] # Eos 179 15 - 500 cells/uL [facility] # Baso 32 0 - 200 cells/uL [facility] % Neutros 65.7 % [facility] % Lymphs 26.3 % [facility] % Monos 4.7 % [facility] % Eos 2.8 % [facility] % Baso 0.5 % [facility] Specimen Blood Narrative Performed At FASTING:YES [facility] MULTIPLE COLLECTION TIMES FOR SAME TEST TYPE. FASTING: YES Resulting Agency Comment Performing Organization Information: Site ID: [facility] [place]) Name: [facility] Address: [address] [place] [phone] Director: Juan F Ruiz Performing Organization Address [facility] Phone Number [facility] [address] [place] [address] [facility] Hepatic function panel (10/24/2019 8:24 AM CDT)Only the most recent of2 results within the time period is included. Protein, Total, Serum 7.5 6.1 - 8.1 g/dL [facility] Albumin 4.6 3.6 - 5.1 g/dL [facility] GLOBULIN ([facility]) 2.9 1.9 - 3.7 g/dL (calc) [facility] Albumin Globulin Ratio 1.6 1.0 - 2.5 (calc) [facility] Bilirubin, Total 1.6 (H) 0.2 - 1.2 mg/dL [facility] Bilirubin, Direct 0.3 (H) < OR = 0.2 mg/dL [facility] Bilirubin, Indirect 1.3 (H) 0.2 - 1.2 mg/dL (calc) [facility] Alkaline Phosphatase, S 67 36 - 130 U/L [facility] AST (SGOT) 20 10 - 40 U/L [facility] ALT (SGPT) 19 9 - 46 U/L [facility] Specimen Blood Narrative Performed At FASTING:YES [facility] MULTIPLE COLLECTION TIMES FOR SAME TEST TYPE. FASTING: YES Resulting Agency Comment Performing Organization Information: Site ID: [id number] Name: [facility] Address: [address] [place] [phone] Director: Juan F Ruiz Performing Organization Address [facility]/Zipcode Phone Number [facility] [address] [place] [address] [facility] US abdomen complete (10/16/2019 10:25 AM CDT)Only the most recent of2 results within the time period is included. Specimen Narrative Performed At FINAL REPORT [employer] Abdominal ultrasound dated 10/16/2019 HISTORY: Cirrhosis, fatty liver COMPARISON: Abdominal ultrasound dated 06/17/2018 Findings: Liver is slightly increased in echogenic ity.The liver measures 15.6 cm in length.No focal lesion is noted in the liver.Spleen is normal in size, 9.1 cm in length, withou t focal abnormality. Gallbladder has been removed. No biliary dilatation seen. Common bile duct measures 4.5 mm in diameter.Angela n portal vein measures 0.9 cm in diameter. Pancreas is obscured by bowel gas. Right kidney measures 11.9 x 5.3 x 6.1 c m.Left kidney measures 11.8 x 6.6 x 5.2 cm.Echogenicity of both kidneys is normal.No hydronephrosis, solid/cystic mass, or ca lculus seen. No ascites is present in the abdomen. Abdominal aorta is normal in caliber. IV C and hepatic veins are patent. Impression: 1. Mild fatty infiltration of the liver. 2. Status post cholecystectomy. Signed: Josie Nichole MD Report Verified Date/Time:10/16/2019 11:39:27 Reading Location: [address] Reading Room Procedure Note Interface, External Ris In - 10/16/2019 11:41 AM CDT FINAL REPORT Abdominal ultrasound dated 10/16/2019 HISTORY: Cirrhosis, fatty liver COMPARISON: Abdominal ultrasound dated 06/17/2018 Findings: Liver is slightly increased in echogenic ity. The liver measures 15.6 cm in length. No focal lesion is n oted in the liver. Spleen is normal in size, 9.1 cm in length, withou t focal abnormality. Gallbladder has been removed. No biliary dilatation seen. Common bile duct measures 4.5 mm in diameter. Main portal vein measures 0.9 cm in diameter. Pancreas is obscured by bowel gas. Right kidney measures 11.9 x 5.3 x 6.1 c m. Left kidney measures 11.8 x 6.6 x 5.2 cm. Echogenicity of both ki dneys is normal. No hydronephrosis, solid/cystic mass, or ca lculus seen. No ascites is present in the abdomen. Abdominal aorta is normal in caliber. IV C and hepatic veins are patent. Impression: 1. Mild fatty infiltration of the liver. 2. Status post cholecystectomy. Signed: Josie Nichole MD Report Verified Date/Time: 10/16/2019 1 1:39:27 Reading Location: [address] Reading Room Performing Organization Address City/State/Zipcode Phone Number [facility] Basic Metabolic Panel (04/17/2019 9:24 AM CDT) Glucose 147 (H) 65 - 99 mg/dL [facility] Comment: Fasting reference interval For someone without known diabetes, a glucose value >125 mg/dL indicates that they may have diabetes and this should be confirmed with a follow-up test. BUN 12 7 - 25 mg/dL [facility] Creatinine 0.82 0.60 - 1.35 mg/dL [facility] eGFR If NonAfricn Am 108 > OR = 60 [facility] mL/min/1.73m2 eGFR If Africn Am 125 > OR = 60 [facility] mL/min/1.73m2 BUN/Creatinine Ratio NOT APPLICABLE 6 - 22 (calc) [facility] Sodium 141 135 - 146 mmol/L [facility] Potassium, Serum 4.0 3.5 - 5.3 mmol/L [facility] Chloride 103 98 - 110 mmol/L [facility] Carbon Dioxide, Total 29 20 - 32 mmol/L [facility] Calcium, Serum 9.4 8.6 - 10.3 mg/dL [facility] Specimen Blood Narrative Performed At FASTING:YES [facility] FASTING: YES Resulting Agency Comment Performing Organization Information: Site ID: [id number] Name: [facility] Address: [address] [place] [phone] Director: Juan F Ruiz Performing Organization Address City/State/Zipcode Phone Number [facility] [address] [place] [address] [facility] after 02/17/2019 Insurance Payer Benefit Plan / Subscriber ID Type Phone Address Group BLUE CROSS/BLUE BCBS PPO POS EPO xxxxxxxxxxxx PPO [phone] [address] [place] [address] Advance Directives For more information, please contact:[address] [place], [place] [phone] Code Status Date Activated Date Inactivated Comments Full Code 03/28/2018 9:36 AM 03/28/2018 1:40 PM This code status was determined by: Patient
[2020-02-18 16:53] LABS: Absolute Lymphocytes (CBC) 2.5 K/uL (0.7-4.9); Hematocrit 45.5 % (39.6-49.0); Lymphocytes % 39.6 % (15.3-44.8); MPV 8.4 fL (7.6-11.3); RBC Red Blood Cell Count 5.22 M/uL (4.33-5.43)
[2020-02-18 16:57] LABS: Protime INR 1.08
--- NOTE | 2020-02-18 17:06 | RAD REPORT ---
EXAM DESCRIPTION: RAD - Chest Single View - 02/18/2020 4:50 pm CLINICAL HISTORY: Cough;Hemoptysis COMPARISON: Two view chest February 2018 TECHNIQUE: AP portable chest image was obtained 02/18/2020 4:50 pm . FINDINGS: Lung volumes are relatively low but clear of mass or consolidation. Interstitial pattern i s not clearly different from the comparison. Heart and vasculature are normal. No measurable pleural effusion and no pneumothorax. No acute bony abnormality seen. No acute aortic findings suspected. IMPRESSION: No acute cardiopulmonary process. No significant interval change.
[2020-02-18 17:13] LABS: ALT/SGPT 41 U/L (12-78); AST/SGOT 29 U/L (15-37); Alkaline Phosphatase 61 U/L (45-117); BUN Blood Urea Nitrogen 5 mg/dL (7-18); Bicarbonate 28 mmol/L (21-32); Bilirubin Direct 0.4 mg/dL (0-0.2); Bilirubin Total 1.8 mg/dL (0.2-1.0); Glucose Level 93 mg/dL (74-106); Magnesium 2.2 mg/dL (1.8-2.4); NT PRO-BNP 19 pg/mL (<125); Potassium 3.7 mmol/L (3.5-5.1); Sodium Level 144 mmol/L (136-145); Troponin (Emerg Dept Use Only) < 0.02 ng/mL (0.0-0.045)
--- NOTE | 2020-02-18 17:21 | EDPHYS ---
Physician Documentation [facility] Name: Maykel Levin Jr Age: 44 yrs Sex: Male : 1975 Arrival Date: 02/18/2020 Time: 15:37 Bed 14 Private MD: ED Physician Darrell Landry HPI: 02/17 18:36 This 44 yrs old Male presents to ER via Ambulatory with complaints of Coughin kdr Blood. 18:36 The patient or guardian reports cough, that is intermittent, described as mild, with kdr productive sputum, that is bloody, difficulty breathing. Onset: The symptoms/episode began/occurred suddenly, today. Modifying factors: The symptoms are alleviated by nothing. the symptoms are aggravated by nothing. Associated signs and symptoms: The patient has no apparent associated signs or symptoms. Severity of symptoms: At their worst the symptoms were mild in the emergency department the symptoms have improved. The patient has not experienced similar symptoms in the past. The patient has not recently seen a physician. Historical: - Allergies: 15:50 No Known Allergies; ll1 - PMHx: 15:50 Diabetes - NIDDM; fibrosis of the liver; High Cholesterol; Hyperlipidemia; ll1 Hypertension; Cirrhosis; Migraines; Pancreatitis; - PSHx: 15:50 Cholecystectomy; ll1 - Immunization history:: Flu vaccine is not up to date. - Social history:: Smoking status: Patient denies any tobacco usage or history of. ROS: 18:36 Constitutional: Negative for fever, chills, and weight loss, Eyes: Negative for injury, kdr pain, redness, and discharge, ENT: Negative for injury, pain, and discharge, Neck: Negative for injury, pain, and swelling, Cardiovascular: Negative for chest pain, palpitations, and edema, Abdomen/GI: Negative for abdominal pain, nausea, vomiting, diarrhea, and constipation, Back: Negative for injury and pain, : Negative for injury, bleeding, discharge, and swelling, MS/Extremity: Negative for injury and deformity, Skin: Negative for injury, rash, and discoloration, Neuro: Negative for headache, weakness, numbness, tingling, and seizure activity. Psych: Negative for depression, anxiety, suicide ideation, homicidal ideation, and hallucinations, Allergy/Immunology: Negative for hives, rash, and allergies, Endocrine: Negative for neck swelling, polydipsia, polyuria, polyphagia, and marked weight changes, Hematologic/Lymphatic: Negative for swollen nodes, abnormal bleeding, and unusual bruising. 18:36 Respiratory: Positive for cough, hemoptysis, Negative for dyspnea on exertion, pleurisy, shortness of breath, wheezing. Exam: 18:36 Constitutional: This is a well developed, well nourished patient who is awake, alert, kdr and in no acute distress. Head/Face: Normocephalic, atraumatic. Eyes: Pupils equal round and reactive to light, extra-ocular motions intact. Lids and lashes normal. Conjunctiva and sclera are non-icteric and not injected. Cornea within normal limits. Periorbital areas with no swelling, redness, or edema. Neck: Trachea midline, no thyromegaly or masses palpated, and no cervical lymphadenopathy. Supple, full range of motion without nuchal rigidity, or vertebral point tenderness. No Meningismus. Chest/axilla: Normal chest wall appearance and motion. Nontender with no deformity. No lesions are appreciated. Cardiovascular: Regular rate and rhythm with a normal S1 and S2. No gallops, murmurs, or rubs. Normal PMI, no JVD. No pulse deficits. Respiratory: Lungs have equal breath sounds bilaterally, clear to auscultation and percussion. No rales, rhonchi or wheezes noted. No increased work of breathing, no retractions or nasal flaring. Abdomen/GI: Soft, non-tender, with normal bowel sounds. No distension or tympany. No guarding or rebound. No evidence of tenderness throughout. Back: No spinal tenderness. No costovertebral tenderness. Full range of motion. Skin: Warm, dry with normal turgor. Normal color with no rashes, no lesions, and no evidence of cellulitis. MS/ Extremity: Pulses equal, no cyanosis. Neurovascular intact. Full, normal range of motion. Neuro: Awake and alert, GCS 15, oriented to person, place, time, and situation. Cranial nerves II-XII grossly intact. Motor strength 5/5 in all extremities. Sensory grossly intact. Cerebellar exam normal. Normal gait. Psych: Awake, alert, with orientation to person, place and time. Behavior, mood, and affect are within normal limits. Vital Signs: 15:47 Pulse 69; Resp 18; Temp 98.3; Pulse Ox 98% ; Weight 89.36 kg; Height 5 ft. 7 in. ll1 (170.18 cm); Pain 2/10; 17:00 BP 126 / 89; Pulse 58; Resp 21; Pulse Ox 100% on R/A; tw2 15:47 Body Mass Index 30.85 (89.36 kg, 170.18 cm) ll1 MDM: 17:21 Patient medically screened. kdr 18:36 Data reviewed: vital signs, nurses notes, lab test result(s), radiologic studies. kdr Counseling: I had a detailed discussion with the patient and/or guardian regarding: the historical points, exam findings, and any diagnostic results supporting the discharge/admit diagnosis, lab results, radiology results, the need for outpatient follow up. 02/17 16:06 Order name: Basic Metabolic Panel; Complete Time: 17:16 kdr 02/17 16:06 Order name: CBC with Diff; Complete Time: 17:16 kdr 02/17 16:06 Order name: LFT's; Complete Time: 17:16 kdr 02/17 16:06 Order name: Magnesium; Complete Time: 17:16 kdr 02/17 16:06 Order name: NT PRO-BNP; Complete Time: 17:16 kdr 02/17 16:06 Order name: PT-INR; Complete Time: 17:16 kdr 02/17 16:06 Order name: Troponin (emerg Dept Use Only); Complete Time: 17:16 kdr 02/17 16:06 Order name: XRAY Chest (1 view); Complete Time: 17:17 kdr 02/17 16:06 Order name: EKG; Complete Time: 16:07 kdr 02/17 16:06 Order name: Cardiac monitoring; Complete Time: 16:42 kdr 02/17 16:06 Order name: EKG - Nurse/Tech; Complete Time: 16:42 kdr 02/17 16:06 Order name: IV Saline Lock; Complete Time: 16:42 kdr 02/17 16:06 Order name: Labs collected and sent; Complete Time: 17:15 kdr 02/17 16:06 Order name: O2 Per Protocol; Complete Time: 16:09 kdr 02/17 16:06 Order name: O2 Sat Monitoring; Complete Time: 16:09 kdr Administered Medications: No medications were administered Disposition: 02/18/20 17:21 Discharged to Home. Impression: Hemoptysis, Cough, Bronchitis, not specified as acute or chronic. - Condition is Stable. - Discharge Instructions: Acute Bronchitis, [id number], Cough, Adult, [id number], Hemoptysis, [id number]. - Prescriptions for Tessalon Perles 100 mg Oral Capsule - take 1 capsule by ORAL route every 8 hours As needed; 15 capsule. - Medication Reconciliation Form, Thank You Letter, Work release form form. - Follow up: Private Physician; When: 2 - 3 days; Reason: If symptoms return, Further diagnostic work-up, Recheck today's complaints, Continuance of care, Re-evaluation by your physician. - Problem is new. - Symptoms are resolved. Signatures: Dispatcher [employer] EDMS Darrell Landry MD MD [facility] Donya Kerr RN RN Kamron Causey RN RN ll1 Corrections: (The following items were deleted from the chart) 17:29 17:21 02/18/2020 17:21 Discharged to Home. Impression: Hemoptysis; Cough; Bronchitis, hb not specified as acute or chronic. Condition is Stable. Forms are Medication Reconciliation Form, Thank You Letter, Antibiotic Education, Prescription Opioid Use. Follow up: Private Physician; When: 2 - 3 days; Reason: If symptoms return, Further diagnostic work-up, Recheck today's complaints, Continuance of care, Re-evaluation by your physician. Problem is new. Symptoms are resolved. kdr
--- NOTE | 2020-02-18 17:21 | ER ---
Nurse's Notes [facility] Name: Maykel Levin Jr Age: 44 yrs Sex: Male : 1975 Arrival Date: 02/18/2020 Time: 15:37 Bed 14 Private MD: Diagnosis: Hemoptysis;Cough;Bronchitis, not specified as acute or chronic Presentation: 02/17 15:47 Chief complaint: Patient states: Abdominal pain with sweating for 2 weeks. Cough for 2 ll1 weeks. Cough with pink blood in it. + nose bleeds. Coronavirus screen: Client denies travel out of the [place] in the last 14 days. cough unrelated to allergies, diarrhea, muscle pain, nausea, vomiting. Client presents with at least one sign or symptom that may indicate coronavirus-19. Standard/surgical mask placed on the client. Ebola Screen: Patient denies travel to an Ebola-affected area in the 21 days before illness onset. Initial Sepsis Screen: Does the patient meet any 2 criteria? No. Patient's initial sepsis screen is negative. Risk Assessment: Do you want to hurt yourself or someone else? Patient reports no desire to harm self or others. Onset of symptoms was February 06, 2020. 15:47 Method Of Arrival: Ambulatory ll1 15:47 Method Of Arrival: Ambulatory ll1 15:47 Acuity: ANT 3 ll1 Historical: - Allergies: 15:50 No Known Allergies; ll1 - PMHx: 15:50 Diabetes - NIDDM; fibrosis of the liver; High Cholesterol; Hyperlipidemia; ll1 Hypertension; Cirrhosis; Migraines; Pancreatitis; - PSHx: 15:50 Cholecystectomy; ll1 - Immunization history:: Flu vaccine is not up to date. - Social history:: Smoking status: Patient denies any tobacco usage or history of. Screenin:57 Abuse screen: Denies threats or abuse. Nutritional screening: No deficits noted. tw2 Tuberculosis screening: No symptoms or risk factors identified. Fall Risk None identified. Assessment: 15:55 General: Appears in no apparent distress. well groomed, Behavior is calm, cooperative, tw2 appropriate for age. Pain: Complains of pain in abdomen. Neuro: Level of Consciousness is awake, alert, obeys commands, Oriented to person, place, time, situation. Cardiovascular: Heart tones S1 S2 Patient's skin is warm and dry. Respiratory: Airway is patent Respiratory effort is even, unlabored, Respiratory pattern is regular, symmetrical, Breath sounds are clear bilaterally. GI: Abdomen is flat, Bowel sounds present X 4 quads. Reports "coughing up blood tinged stuff". : No signs and/or symptoms were reported regarding the genitourinary system. EENT: No signs and/or symptoms were reported regarding the EENT system. Derm: No signs and/or symptoms reported regarding the dermatologic system. Musculoskeletal: Range of motion: intact in all extremities. 16:14 Reassessment: provider at bedside at this time. tw2 17:14 Reassessment: Patient appears in no apparent distress at this time. No changes from tw2 previously documented assessment. Patient and/or family updated on plan of care and expected duration. Pain level reassessed. Patient is alert, oriented x 3, equal unlabored respirations, skin warm/dry/pink. 17:23 Reassessment: provider at bedside at this time. tw2 Vital Signs: 15:47 Pulse 69; Resp 18; Temp 98.3; Pulse Ox 98% ; Weight 89.36 kg; Height 5 ft. 7 in. ll1 (170.18 cm); Pain 2/10; 17:00 BP 126 / 89; Pulse 58; Resp 21; Pulse Ox 100% on R/A; tw2 15:47 Body Mass Index 30.85 (89.36 kg, 170.18 cm) ll1 ED Course: 15:37 Patient arrived in ED. ds1 15:47 Darrell Landry MD is Attending Physician. kdr 15:49 Triage completed. ll1 15:50 Arm band placed on Patient placed in an exam room, on a stretcher. ll1 15:57 Anna Barrios, JUMANA is Primary Nurse. tw2 15:57 Bed in low position. Call light in reach. Pulse ox on. NIBP on. tw2 16:25 Inserted saline lock: 20 gauge in right antecubital area, using aseptic technique. tw2 Blood collected. 16:51 XRAY Chest (1 view) In Process Unspecified. EDMS 17:29 No provider procedures requiring assistance completed. IV discontinued, intact, hb bleeding controlled, No redness/swelling at site. 17:29 No provider procedures requiring assistance completed. tw2 Administered Medications: No medications were administered Outcome: 17:21 Discharge ordered by . kdr 17:29 Discharged to home ambulatory. hb 17:29 Condition: stable 17:29 Discharge instructions given to patient, Instructed on discharge instructions, follow up and referral plans. medication usage, Demonstrated understanding of instructions, follow-up care, medications, Prescriptions given X 1. 17:29 Patient left the ED. hb Signatures: Dispatcher [employer] EDMS Darrell Landry MD MD kdr Adelina Harrington ds1 Donya Kerr RN RN Anna Barrios RN RN tw2 Kamron Causey RN RN ll1 Corrections: (The following items were deleted from the chart) 17:14 17:13 BP 126 / 89; Pulse 58bpm; Resp 21bpm; Pulse Ox 100% RA; tw2 tw2
--- NOTE | 2020-02-19 11:12 | EKG ---
Test Date: 2020-02-18 Test Time: 16:41:44 Product Sales Engineer: MARTINEZ MEASUREMENT RESULTS: Intervals: Rate: 59 ID: [id number] QRSD: 80 QT: 420 QTc: 415 Coyle: P: 27 ID: [id number] QRS: 74 T: 53 INTERPRETIVE STATEMENTS: Sinus bradycardia Otherwise normal ECG No previous ECG available for comparison Electronically Signed On 02-19-20 11:10:19 CDT by Adrien Farooq
== END 2020-02-18 17:29 | disposition home or self-care (01) ==
LOC: ER 15:34
DX: J40 Bronchitis, not specified as acute or chronic (principal); R05 Cough; I10 Essential (primary) hypertension
CPT/HCPCS: 36415; 71045; 80048; 80076; 83735; 83880; 84484; 85025; 85610; 93005; 99284